=== PATIENT | male | born 1970 | race Caucasian/White ===

== ENCOUNTER 2017-11-13 11:21 | Outpatient (CLI) | payer OTHER | END 2017-11-13 11:22 | disposition critical access hospital (66) | LOC: EMS 11:21 | PROVIDERS: ATTEND Surgery | DX: R58 Hemorrhage, not elsewhere classified (principal) | CPT/HCPCS: A0425; A0427 ==

== ENCOUNTER 2017-11-13 23:03 | Outpatient (CLI) | payer OTHER | END 2017-11-13 23:04 | disposition short-term general hospital (02) | LOC: EMS 23:03 | PROVIDERS: ATTEND Surgery | DX: S71.131A Puncture wound without foreign body, right thigh, initial encounter (principal); W32.0XXA Accidental handgun discharge, initial encounter; Y93.89 Activity, other specified; Y92.838 Other recreation area as the place of occurrence of the external cause | CPT/HCPCS: A0425; A0429 ==

== ENCOUNTER 2017-11-13 23:33 | Emergency (ER) | payer OTHER ==
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
[2017-11-14] MEDS ORDERED: MORPHINE 10 MG/ML VIAL IVP STA (00:09)
[2017-11-14] MEDS ORDERED: KETOROLAC 30 MG/ML VIAL IVP STA (00:09)
[2017-11-14] MEDS ORDERED: ONDANSETRON 4 MG/2 ML VIAL IVP STA (00:09)
[2017-11-14] MEDS ORDERED: VANCOMYCIN INJ 1 GM in SODIUM CHLORIDE 0.9% 500 ML IV STA (00:09)
[2017-11-14] MEDS ORDERED: ceFAZolin 1 GM in SODIUM CHLORIDE 0.9% MINIBAG 100 ML IV ONE (00:09)
[2017-11-14] MEDS ORDERED: SODIUM CHLORIDE 0.9% 1,000 ML IV ONE (00:14)
[2017-11-14] MEDS ORDERED: oxyCODONE/ACET 5/325 Prepack 4 PO STA (02:37)
[2017-11-14 04:15] VITALS: BP 132/74
== END 2017-11-14 04:23 | disposition home or self-care (01) ==
LOC: EDUNIT# → ED 23:33 → SUPCPDRO 23:33 → ED 11-14 04:23
DX: S71.101A Unspecified open wound, right thigh, initial encounter (principal); W32.0XXA Accidental handgun discharge, initial encounter; Y92.39 Other specified sports and athletic area as the place of occurrence of the external cause
CPT/HCPCS: 96365; 96366; 96367; 96375; 99283; J3370

== ENCOUNTER 2018-02-15 16:18 | Emergency (ER) | payer OTHER ==
--- NOTE | 2018-02-15 16:29 | ED Physician Documentation ---
PD HPI SKIN - Stated complaint Stated Complaint: LT KNEE SWOLLEN/RED/PUSS - History obtained from History obtained from: Patient - History of Present Illness Timing - onset: How many days ago (few) Timing - details: Gradual onset (he fell on stairs Wednesday (few days ago) and had abrasion. It is having worsening redness and swelling with some drops of pus at times. Painful and swollen. Seen in office today and referred to ER.) Location: LLE (anterior knee) Quality / character: Painful, Discolored (red), Swelling, Draining Associated symptoms: No: Fever, Myalgias, N/V/D Similar symptoms before: Has not had sx before Review of Systems Constitutional: denies: Fever, Chills, Myalgias GI: denies: Nausea, Vomiting, Diarrhea PD PAST MEDICAL HISTORY - Past Medical History Cardiovascular: None Respiratory: None Neuro: None Endocrine/Autoimmune: None - Past Surgical History Past Surgical History: No - Present Medications Home Medications: Ambulatory Orders Medication Instructions Recorded Confirmed Mupirocin 1 applic TP TID #15 oint...g. 02/15/18 Naproxen 375 mg PO BID #20 tablet 02/15/18 Oxycodone HCl/Acetaminophen 1 each PO Q6H PRN #20 tablet 02/15/18 [Percocet 5-325 mg Tablet] Sulfamethox/Trimeth 800/160 1 each PO BID #14 tablet 02/15/18 [Bactrim Ds 800/160] - Allergies Allergies/Adverse Reactions: Allergies Allergy/AdvReac Type Severity Reaction Status Date / Time No Known Drug Allergies Allergy Verified 02/15/18 16:30 - Social History Does the pt smoke?: No Smoking Status: Never smoker Does the pt drink ETOH?: Yes Does the pt have substance abuse?: No - Immunizations Immunizations are current?: No - POLST Patient has POLST: No PD ED PE NORMAL - Vitals Vital signs reviewed: Yes - General General: Alert and oriented X 3, Well developed/nourished, Other (anxious and seems in pain) - Cardiac Cardiac: RRR, No murmur - Respiratory Respiratory: Clear bilaterally - Derm Derm: Normal color, Warm and dry, Other (left knee anteriorly with skin redness and swelling with some spots of purulent drainage. There is feeling of fluctuance centrally about 2 cm diameter. There does not feel to be any bursal effusion. No joint effusion. ) Results - Vitals Vitals: Vital Signs - 24 hr 02/15/18 16:25 Temperature 36.2 C L Heart Rate 94 Respiratory 18 Rate Blood Pressure 139/87 H O2 Saturation 98 Oxygen O2 Source Room air - Labs Labs: Microbiology 02/15/18 17:50 Wound Culture - Preliminary Abscess Procedures - Abscess I&D (location) left anterior knee Preparation: Lidocaine 1%, With epi Incision: Incised with scalpel, Purulent drainage (some), Irrigated. No: Packed Other: Dressing applied, Antibiotic prescribed. No: Pt tolerated well (it hurt a lot and he was anxious during it. Had given PO pain med prior. He was upset after that it hurt more than expected.) PD MEDICAL DECISION MAKING - ED course Complexity details: considered differential, d/w patient - Sepsis Event Vital Signs: Vital Signs - 24 hr 02/15/18 16:25 Temperature 36.2 C L Heart Rate 94 Respiratory 18 Rate Blood Pressure 139/87 H O2 Saturation 98 Oxygen O2 Source Room air Departure - Departure Disposition: 01 Home, Self Care Clinical Impression: Wound infection, Abscess of knee, left Condition: Stable Record reviewed to determine appropriate education?: Yes Instructions: ED Abscess IandD Follow-Up: Barry Olivas MD [Primary Care Provider] - Prescriptions: Mupirocin 1 applic TP TID #15 oint...g. Naproxen 375 mg PO BID #20 tablet Oxycodone HCl/Acetaminophen [Percocet 5-325 mg Tablet] 1 each PO Q6H PRN #20 tablet PRN Reason: Pain Sulfamethox/Trimeth 800/160 [Bactrim Ds 800/160] 1 each PO BID #14 tablet Comments: Soak the knee or have warm moist compresses to the area to 3 times a day to promote drainage. Use mupirocin topical antibiotic to the area. Apply dressing and [place] wrap for the swelling. Use crutches for partial weightbearing for the next several days. Bactrim antibiotic twice daily for the next week. Use naproxen twice daily for inflammation and pain and add Tylenol or Percocet if needed for pain. Follow-up with your primary care in 2-3 days for recheck of the wound, call for an appointment. Return if generally worsening in the meantime. Discharge Date/Time: 02/15/18 18:03
[2018-02-15 16:31] VITALS: BP 139/87
[2018-02-15] MEDS ORDERED: oxyCODONE 5 MG TABLET PO STA ×2 (16:47→17:16)
[2018-02-15] MEDS ORDERED: SULFAMETH/TRIMETH DS 800/160 MG TABLET PO STA (16:47)
[2018-02-15] MEDS ORDERED: IBUPROFEN 600 MG TABLET PO STA (16:47)
[2018-02-15] MEDS ORDERED: LORazepam 0.5 MG TABLET PO STA (17:16)
== END 2018-02-15 18:03 | disposition home or self-care (01) ==
LOC: ED 16:18
DX: L02.416 Cutaneous abscess of left lower limb (principal); W10.9XXA Fall (on) (from) unspecified stairs and steps, initial encounter
CPT/HCPCS: 10060; 87070; 87205; 99283; A9270

== ENCOUNTER 2020-04-09 17:36 | Outpatient (CLI) | payer MEDICAID, OTHER | END 2020-04-09 23:59 | disposition home or self-care (01) | LOC: LAB.R 17:36 | PROVIDERS: ATTEND Physician Assistant | DX: N34.2 Other urethritis (principal) | CPT/HCPCS: 81599; 87491; 87591 ==

== ENCOUNTER 2020-05-07 16:13 | Emergency (ER) | payer MEDICAID, OTHER ==
[2020-05-07 16:49] LABS: EOSINOPHILS % (AUTO) 0.1 %; LYMPHOCYTES % (AUTO) 52.9 %; MEAN CORPUSCULAR HEMOGLOBIN 35.6 pg (27.0-31.0); MEAN CORPUSCULAR HGB CONC 31.5 g/dL (32.0-36.0); MEAN CORPUSCULAR VOLUME 113.1 fL (80.0-94.0); MEAN PLATELET VOLUME 11.2 fL (7.4-11.4); MONOCYTES % (AUTO) 46.2 %; NEUTROPHILS % (AUTO) 0.4 %; RED CELL DISTRIBUTION WIDTH 18.2 % (12.0-15.0)
--- NOTE | 2020-05-07 16:56 | ED Physician Documentation ---
History of Present Illness - Stated complaint Stated Complaint: EASILY WINDED,YELLOWISH SKIN - Chief complaint Chief Complaint: Cardiac - History obtained from History obtained from: Patient - History of Present Illness Timing: Prior to arrival - Additonal information Additional information: 49-year old male presents to the emergency department for evaluation of 3 weeks intermittent chest pain and shortness of breath. He reports the chest pain as pressure like, non radiating, but worse with exertion. States to me that yesterday he felt liek he was going to have a heart attack. He denies any hx of [place], stroke. he takes not routinely scheduled medications. Pt also reports that his hips and joints have been hurting, especially after walking, which is new for him. no joint swelling or erythema This gentleman is a former smoker, quit 7 years ago. he also has a hx of heavy ETOH, but also has abstained for many years. No hx of htn or dm. NO abdominal pain, syncope, dysuria, hematuria or melena Review of Systems Constitutional: denies: Fever, Chills Eyes: reports: Reviewed and negative Ears: reports: Reviewed and negative Nose: reports: Reviewed and negative Throat: reports: Reviewed and negative Cardiac: reports: Chest pain / pressure. denies: Palpitations, Pedal edema, Calf pain Respiratory: reports: Dyspnea. denies: Cough, Hemoptysis, Wheezing GI: denies: Abdominal Pain, Nausea, Vomiting, Hematemesis, Bloody / black stool : denies: Dysuria, Frequency, Hesitancy Skin: reports: Rash Musculoskeletal: reports: Reviewed and negative Neurologic: denies: Generalized weakness, Near syncope, Syncope, Seizure, Altered mental status Psychiatric: denies: Depressed, Suicidal Endocrine: reports: Reviewed and negative PD PAST MEDICAL HISTORY - Past Medical History Cardiovascular: None Respiratory: None Neuro: None Endocrine/Autoimmune: None - Past Surgical History Past Surgical History: No - Present Medications Home Medications: Ambulatory Orders Medication Instructions Recorded Confirmed Mupirocin 1 applic TP TID #15 oint...g. 02/15/18 Naproxen 375 mg PO BID #20 tablet 02/15/18 Oxycodone HCl/Acetaminophen 1 each PO Q6H PRN #20 tablet 02/15/18 [Percocet 5-325 mg Tablet] Sulfamethox/Trimeth 800/160 1 each PO BID #14 tablet 09/25/18 [Bactrim Ds 800/160] - Allergies Allergies/Adverse Reactions: Allergies Allergy/AdvReac Type Severity Reaction Status Date / Time albuterol Allergy Respiratory Verified 05/07/20 16:21 - Social History Does the pt smoke?: No Smoking Status: Never smoker Does the pt drink ETOH?: Yes Does the pt have substance abuse?: No - Immunizations Immunizations are current?: No - POLST Patient has POLST: No PD ED PE EXPANDED - General General: Alert, No acute distress, Well developed/nourished - HEENT HEENT: Atraumatic, PERRL - Neck Neck: Supple w/out meningeal sx, Adenopathy - Cardiac Cardiac: Regular Rate, Regular Rhythm, Radial strong equal, Pedal strong equal, Cap refill < 2 sec. No: Murmur Present - Respiratory Respiratory: Clear to ausultation zander. No: Distress, Labored - Abdomen Abdomen: Normal Bowel sounds, RUQ. No: Tender to palpation - Derm Derm: Normal color, Other (pale). No: Rash, Petecchiae, Purpura - Extremities Extremities: Normal. No: Pedal edema bilateral, Right calf TTP/cord, Left calf TTP/cord - Neuro Neuro: Alert and Oriented X 3, CNII-XII intact, Normal finger nose, Normal speech - GCS Eye Opening: Spontaneous Motor: Obeys Commands Verbal: Oriented Total: 15 - Psych Psych: Normal, Anxious Results - Vitals Vitals: Vital Signs - 24 hr 05/07/20 05/07/20 05/07/20 16:21 16:26 18:36 Temperature 37.1 C 37.1 C 37.3 C Heart Rate 105 H 94 95 Respiratory 20 20 100 H Rate Blood Pressure 119/68 119/68 133/90 H O2 Saturation 100 100 18 L 05/07/20 05/07/20 05/07/20 19:25 19:34 19:50 Temperature 37.1 C 37.0 C 37.0 C Heart Rate 88 88 92 Respiratory 19 19 19 Rate Blood Pressure 127/73 128/80 125/82 H O2 Saturation Oxygen O2 Source Room air - EKG (time done) 1633 Rate: Rate (enter#) (94) Rhythm: NSR [place]: Normal Intervals: Normal [place] QRS: Normal Ischemia: Normal ST segments Compare to prior EKG: Old EKG unavailable Computer interpretation: Agree with computer - Labs Labs: Laboratory Tests 05/07/20 05/07/20 05/07/20 16:35 16:35 16:35 WBC 44.0 H* RBC 1.60 L Hgb 5.7 L* Hct 18.1 L* MCV 113.1 H MCH 35.6 H MCHC 31.5 L RDW 18.2 H Plt Count 19 L* MPV 11.2 Neut # (Auto) 0.2 L* Lymph # (Auto) Not Reportable [place] # (Auto) Not Reportable Eos # (Auto) Not Reportable Baso # (Auto) Not Reportable Absolute Nucleated RBC Not Reportable Total Counted 100 Band Neuts % (Manual) 0 Abnorm Lymph % (Manual) 0 Blast Cells % 52 H* Nucleated RBC % Not Reportable Neutrophils # (Manual) 0.0 L* Lymphocytes # (Manual) 21.1 H Monocytes # (Manual) 0.0 Eosinophils # (Manual) 0.0 Basophils # (Manual) 0.0 Differential Comment MANUAL DIFFERENTIAL Platelet Estimate DECREASED (<130,000) Platelet Morphology NORMAL APPEARANCE RBC Morph Micro Appear 2+ ANISOCYTOSIS Sodium 139 Potassium 4.4 Chloride 106 Carbon Dioxide 25 Anion Gap 8.0 BUN 31 H Creatinine 1.4 H Estimated GFR (MDRD) 54 L Glucose 90 Lactic Acid Uric Acid Calcium 9.0 Total Bilirubin 0.6 AST 26 ALT 41 Alkaline Phosphatase 84 Lactate Dehydrogenase Troponin I High Sens 4.7 B-Natriuretic Peptide Total Protein 7.2 Albumin 4.0 Globulin 3.2 Albumin/Globulin Ratio 1.3 Lipase 25 Nasal Adenovirus (PCR) Nasal B. parapertussis DNA (PCR) Nasal Coronavir 229E PCR Nasal Coronavir HKU1 PCR Nasal Coronavir NL63 PCR Nasal Coronavir OC43 PCR Nasal Enterovir/Rhinovir PCR Nasal Influenza B PCR Nasal Influenza A PCR Nasal Parainfluen 1 PCR Nasal Parainfluen 2 PCR Nasal Parainfluen 3 PCR Nasal Parainfluen 4 PCR Nasal RSV (PCR) Nasal B.pertussis DNA PCR Nasal C.pneumoniae (PCR) Gerald Human Metapneumo PCR Nasal M.pneumoniae (PCR) Nasal SARS-CoV-2 (PCR) Slides for Path Review Indicated Blood Type Blood Type Recheck Antibody Screen Crossmatch IS Only 05/07/20 05/07/20 05/07/20 16:35 16:57 17:16 WBC RBC Hgb Hct MCV MCH MCHC RDW Plt Count MPV Neut # (Auto) Lymph # (Auto) [place] # (Auto) Eos # (Auto) Baso # (Auto) Absolute Nucleated RBC Total Counted Band Neuts % (Manual) Abnorm Lymph % (Manual) Blast Cells % Nucleated RBC % Neutrophils # (Manual) Lymphocytes # (Manual) Monocytes # (Manual) Eosinophils # (Manual) Basophils # (Manual) Differential Comment Platelet Estimate Platelet Morphology RBC Morph Micro Appear Sodium Potassium Chloride Carbon Dioxide Anion Gap BUN Creatinine Estimated GFR (MDRD) Glucose Lactic Acid Uric Acid Calcium Total Bilirubin AST ALT Alkaline Phosphatase Lactate Dehydrogenase Troponin I High Sens B-Natriuretic Peptide 29 Total Protein Albumin Globulin Albumin/Globulin Ratio Lipase Nasal Adenovirus (PCR) NOT DETECTED Nasal B. parapertussis DNA (PCR) NOT DETECTED Nasal Coronavir 229E PCR NOT DETECTED Nasal Coronavir HKU1 PCR NOT DETECTED Nasal Coronavir NL63 PCR NOT DETECTED Nasal Coronavir OC43 PCR NOT DETECTED Nasal Enterovir/Rhinovir PCR DETECTED A Nasal Influenza B PCR NOT DETECTED Nasal Influenza A PCR NOT DETECTED Nasal Parainfluen 1 PCR NOT DETECTED Nasal Parainfluen 2 PCR NOT DETECTED Nasal Parainfluen 3 PCR NOT DETECTED Nasal Parainfluen 4 PCR NOT DETECTED Nasal RSV (PCR) NOT DETECTED Nasal B.pertussis DNA PCR NOT DETECTED Nasal C.pneumoniae (PCR) NOT DETECTED Gerald Human Metapneumo PCR NOT DETECTED Nasal M.pneumoniae (PCR) NOT DETECTED Nasal SARS-CoV-2 (PCR) NOT DETECTED Slides for Path Review Blood Type A POSITIVE Blood Type Recheck Antibody Screen NEGATIVE Crossmatch IS Only 05/07/20 05/07/20 05/07/20 17:16 17:16 17:16 WBC RBC Hgb Hct MCV MCH MCHC RDW Plt Count MPV Neut # (Auto) Lymph # (Auto) [place] # (Auto) Eos # (Auto) Baso # (Auto) Absolute Nucleated RBC Total Counted Band Neuts % (Manual) Abnorm Lymph % (Manual) Blast Cells % Nucleated RBC % Neutrophils # (Manual) Lymphocytes # (Manual) Monocytes # (Manual) Eosinophils # (Manual) Basophils # (Manual) Differential Comment Platelet Estimate Platelet Morphology RBC Morph Micro Appear Sodium Potassium Chloride Carbon Dioxide Anion Gap BUN Creatinine Estimated GFR (MDRD) Glucose Lactic Acid 0.8 Uric Acid Calcium Total Bilirubin AST ALT Alkaline Phosphatase Lactate Dehydrogenase Troponin I High Sens B-Natriuretic Peptide Total Protein Albumin Globulin Albumin/Globulin Ratio Lipase Nasal Adenovirus (PCR) Nasal B. parapertussis DNA (PCR) Nasal Coronavir 229E PCR Nasal Coronavir HKU1 PCR Nasal Coronavir NL63 PCR Nasal Coronavir OC43 PCR Nasal Enterovir/Rhinovir PCR Nasal Influenza B PCR Nasal Influenza A PCR Nasal Parainfluen 1 PCR Nasal Parainfluen 2 PCR Nasal Parainfluen 3 PCR Nasal Parainfluen 4 PCR Nasal RSV (PCR) Nasal B.pertussis DNA PCR Nasal C.pneumoniae (PCR) Gerald Human Metapneumo PCR Nasal M.pneumoniae (PCR) Nasal SARS-CoV-2 (PCR) Slides for Path Review Blood Type Cancelled Blood Type Recheck Antibody Screen Cancelled Crossmatch IS Only See Detail See Detail 05/07/20 05/07/20 05/07/20 17:58 18:44 18:52 WBC RBC Hgb Hct MCV MCH MCHC RDW Plt Count MPV Neut # (Auto) Lymph # (Auto) [place] # (Auto) Eos # (Auto) Baso # (Auto) Absolute Nucleated RBC Total Counted Band Neuts % (Manual) Abnorm Lymph % (Manual) Blast Cells % Nucleated RBC % Neutrophils # (Manual) Lymphocytes # (Manual) Monocytes # (Manual) Eosinophils # (Manual) Basophils # (Manual) Differential Comment Platelet Estimate Platelet Morphology RBC Morph Micro Appear Sodium Potassium Chloride Carbon Dioxide Anion Gap BUN Creatinine Estimated GFR (MDRD) Glucose Lactic Acid Uric Acid 7.9 H Calcium Total Bilirubin AST ALT Alkaline Phosphatase Lactate Dehydrogenase 469 H Troponin I High Sens B-Natriuretic Peptide Total Protein Albumin Globulin Albumin/Globulin Ratio Lipase Nasal Adenovirus (PCR) Nasal B. parapertussis DNA (PCR) Nasal Coronavir 229E PCR Nasal Coronavir HKU1 PCR Nasal Coronavir NL63 PCR Nasal Coronavir OC43 PCR Nasal Enterovir/Rhinovir PCR Nasal Influenza B PCR Nasal Influenza A PCR Nasal Parainfluen 1 PCR Nasal Parainfluen 2 PCR Nasal Parainfluen 3 PCR Nasal Parainfluen 4 PCR Nasal RSV (PCR) Nasal B.pertussis DNA PCR Nasal C.pneumoniae (PCR) Gerald Human Metapneumo PCR Nasal M.pneumoniae (PCR) Nasal SARS-CoV-2 (PCR) Slides for Path Review Blood Type Blood Type Recheck A POSITIVE Antibody Screen Crossmatch IS Only - Rads (name of study) CXR Radiology: Final report received (Chest without acute cardiopulmonary abnormalities.) CT angio chest Radiology: Final report received (4 mm right upper lobe pulmonary nodule with surrounding opacity suspicious for malignancy although an infectious or inflammatory process could cause a similar appearance. Tiny 2 mm left lower lobe pulmonary nodule nonspecific. No lymphadenopathy in the chest.) CT abd/pelvis Radiology: Final report received (Questionable small bowel wall thickening and gastric wall thickening. These are nonspecific and potentially artifactual findings however they can be seen in the setting of leukemia or other infiltrative process. Otherwise no acute finding) PD MEDICAL DECISION MAKING - ED course Complexity details: reviewed results, re-evaluated patient, considered differential, d/w patient, d/w family ED course: 49-year-old male presents the emergency department with 3 weeks of chest pain, shortness of breath, progressive fatigue as well as joint aches. On initial laboratory screening it is noted that he has marked leukocytosis with 52% blasts. This is indicative of an acute myeloid crisis. CT scan of the chest does not show any pulmonary embolus however there is a right upper lobe nodule that is somewhat suspicious for metastatic disease. Patient is noted to be markedly thrombocytopenic as well as anemic. I have ordered irradiated and leukoreduced PRBC infusion. Patient had reported shortness of air and chest pain. His EKG is nonischemic. Negative high-sensitivity troponin. Normal BNP. Chest x-ray does not show findings consistent with CHF or pulmonary edema. 1845: I have spoken with Dr Venegas Agency Director/oncologist with [facility]. She agrees to accept the patient in transfer. She has requested LDH and uric acid be obtained. His COVID screen is negative, though + for rhinovirus 1900: Dr. Aldrich a hospitalist at [facility] has agreed to accept the patient in transfer. We are pending a bed assignment. Patient remains hemodynamically stable and alert. He was getting excessively anxious and 1 mg of Ativan was given to help calm his nerves. He has agreed to the PRBC infusion 2009: PRBC infusion well tolerated. LDH and uric acid levels noted to be elevated. Pt remains hemodynamically stable. Pt has been accepted at [facility]. Bed assignment pending. Apppropriate COB[employer] paperwork has been filled out. 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
--- NOTE | 2020-05-07 16:57 | XRAY Report ---
PROCEDURE: Chest 1 View X-Ray INDICATIONS: Chest Pain TECHNIQUE: One view of the chest was acquired. COMPARISON: 08/09/2011 FINDINGS: Surgical changes and devices: Surgical fixation hardware noted in the proximal right humerus. Lungs and pleura: No pleural effusions or pneumothorax. Lungs are clear. Mediastinum: Mediastinal contours appear normal. Heart size is normal. Bones and chest wall: No suspicious bony lesions. Overlying soft tissues appear unremarkable. IMPRESSION: Chest without acute cardiopulmonary abnormalities. Reviewed by: Ronn Mueller MD on 05/07/2020 4:56 PM PST Approved by: Ronn Mueller MD on 05/07/2020 4:56 PM PST Station ID: [id number]
[2020-05-07 16:58] LABS: HGB - HEMOGLOBIN 5.7 g/dL (14.0-18.0); PLT - PLATELET COUNT 19 10^3/uL (130-450)
[2020-05-07] MEDS ORDERED: SODIUM CHLORIDE 0.9% 1,000 ML IV STA ×2 (16:58→17:00)
[2020-05-07 16:59] LABS: ALBUMIN/GLOBULIN RATIO 1.3 (1.0-2.2); BILIRUBIN,TOTAL 0.6 mg/dL (0.2-1.0); CREATININE 1.4 mg/dL (0.6-1.2); TOTAL PROTEIN 7.2 g/dL (6.7-8.2)
[2020-05-07 17:00] LABS: ABNORMAL LYMPHS % (MANUAL) 0 %; BAND NEUTROPHILS % (MANUAL) 0 %
[2020-05-07] MEDS ORDERED: IOVERSOL 320 100 ML VIAL IVP ONE ×2 (17:17→18:46)
[2020-05-07 17:33] LABS: LYMPHOCYTES # (MANUAL) 21.1 10^3/uL (1.5-3.5); LYMPHOCYTES % (MANUAL) 48 %
[2020-05-07 17:34] LABS: DIFFERENTIAL COMMENT MANUAL DIFFERENTIAL; PLATELET ESTIMATE, MANUAL DECREASED (<130,000) (NORMAL); PLATELET MORPHOLOGY NORMAL APPEARANCE (NORMAL); RBC MORPHOLOGY (MULTIPLE) 2+ ANISOCYTOSIS (NORMAL)
[2020-05-07 17:50] LABS: NEUTROPHILS # (AUTO) 0.2 10^3/uL (1.5-6.6)
--- NOTE | 2020-05-07 18:00 | CT Report ---
PROCEDURE: Abdomen/Pelvis W INDICATIONS: Leukemia suspected CONTRAST: IV CONTRAST: Optiray 320 ml: 100 PO CONTRAST: *NO PO CONTRAST TECHNIQUE: After the administration of intravenous contrast, 5 mm thick sections acquired from the diaphragms to the symphysis. 5 mm thick coronal and sagittal reformats were acquired. For radiation dose reducti on, the following was used: automated exposure control, adjustment of mA and/or kV according to luz ent size. COMPARISON: None. FINDINGS: Image quality: Excellent. ABDOMEN: Lung bases: Lung bases are clear. Heart size is normal. Solid organs: Normal sized spleen. The liver is unremarkable. Gallbladder is decompressed and normal in appearance. No adrenal gland mass. Kidneys are normal without hydronephrosis. Pancreas is within n ormal limits. Peritoneum and bowel: Questionable areas of wall thickening involving the proximal and mid portions o f the small bowel. There is also a somewhat thickened appearance of the stomach, although this is not definitive as the stomach is almost entirely decompressed. No abnormally dilated loop of bowel. Loyal n is unremarkable. Nodes and vessels: No threshold enlarged retroperitoneal or intra-abdominal lymph node identified. Miscellaneous: No ventral hernias. PELVIS: Genitourinary: Bladder wall thickness is normal. Miscellaneous: No inguinal hernias or adenopathy. Bones: No suspicious bony lesions. No vertebral body compression fractures. IMPRESSION: Questionable small bowel wall thickening and gastric wall thickening. These are nonspecific and poten tially artifactual findings, however they can be seen in the setting of leukemia or other infiltrativ e processes. Otherwise no acute finding. Reviewed by: Neo Schuster MD on 05/07/2020 4:59 PM [facility] Approved by: Neo Schuster MD on 05/07/2020 4:59 PM [place] Station ID: [id number]
--- NOTE | 2020-05-07 18:03 | CT Report ---
PROCEDURE: ANGIO CHEST W/WO INDICATIONS: SOA: ? leukemia; r/o PE CONTRAST: IV CONTRAST: Optiray 320 ml: 100 PO CONTRAST: *NO PO CONTRAST TECHNIQUE: After the administration of intravenous contrast, 2 mm thick sections acquired from the pulmonary api tete to the posterior costophrenic angles. 3-dimensional maximum intensity projection (MIP) coronal a nd sagittal reformats were then acquired through the thorax. For radiation dose reduction, the follow ing was used: automated exposure control, adjustment of mA and/or kV according to patient size. COMPARISON: None FINDINGS: Image quality: Excellent. Pulmonary arteries: Pulmonary arteries are normal in size, and demonstrate no intraluminal filling d efects to suggest central pulmonary embolism. Lungs and pleura: Approximately 4 mm right upper lobe pulmonary nodule on series 2 image 62 has a bebo rounding hazy groundglass opacity and is suspicious in appearance. Tiny nodule in the left lower lobe inferiorly measuring 2 mm on series 2 image 120. Mediastinum: Heart size is normal, without pericar dial effusion. No mediastinal or hilar adenopathy. Thoracic aorta is normal in caliber and enhancem ent. Esophagus is normal in caliber, without hiatal hernia. Bones and chest wall: No suspicious bony lesions. Ribs and thoracic spine appear intact throughout. The thyroid is normal. No axillary or supraclavicular adenopathy. Abdomen: Visualized upper abdominal solid organs appear normal in the early arterial phase of enhanc ement. IMPRESSION: Approximately 4 mm right upper lobe pulmonary nodule with surrounding hazy groundglass opacity. This is suspicious for malignancy although an infectious or inflammatory process could cause a similar ignacio earance. Tiny 2 mm left lower lobe pulmonary nodule is nonspecific. No lymphadenopathy in the chest. Reviewed by: Neo Schuster MD on 05/07/2020 5:02 PM [place] Approved by: Neo Schuster MD on 05/07/2020 5:02 PM [facility] Station ID: [id number]
[2020-05-07 18:04] LABS: C. PNEUMONIAE- RESP PCR PANEL NOT DETECTED
[2020-05-07] MEDS ORDERED: LORazepam 2 MG/ML VIAL IVP STA (18:34)
[2020-05-07 22:03] VITALS: BP 134/74
== END 2020-05-07 21:55 | disposition short-term general hospital (02) ==
LOC: ED 16:13
DX: C92.00 Acute myeloblastic leukemia, not having achieved remission (principal); D69.6 Thrombocytopenia, unspecified; B34.8 Other viral infections of unspecified site; R91.1 Solitary pulmonary nodule; Z20.828 Contact with and (suspected) exposure to other viral communicable diseases; R79.89 Other specified abnormal findings of blood chemistry; F41.1 Generalized anxiety disorder
CPT/HCPCS: 0202U; 36430; 71045; 71275; 74177; 80053; 83605; 83615; 83690; 83880; 84484; 84550; 85025; 86850; 86900; 86901; 86920; 87040; 93005; 96361; 96374; 99284; 99285; J2060; P9040; Q9967; 36415

== ENCOUNTER 2020-05-29 02:53 | Outpatient (CLI) | payer MEDICAID ==
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
== END 2020-05-29 02:54 | disposition critical access hospital (66) ==
LOC: EMS 02:53
PROVIDERS: ATTEND Surgery
DX: R06.02 Shortness of breath (principal); R07.9 Chest pain, unspecified; R53.1 Weakness; M79.10 Myalgia, unspecified site; R53.83 Other fatigue; R11.0 Nausea; F41.9 Anxiety disorder, unspecified
CPT/HCPCS: A0425; A0429; A0999

== ENCOUNTER 2020-05-29 03:25 | Emergency (ER) | payer MEDICAID ==
--- NOTE | 2020-05-29 03:31 | ED Physician Documentation ---
PD HPI CHEST PAIN - Stated complaint Stated Complaint: CP/SOA - History obtained from History obtained from: Patient, EMS - History of Present Illness Timing - onset: Other ("a couple of weeks, at least" per patient) Timing - duration: Weeks Timing - details: Gradual onset, Constant, Waxing and waning Pain level max: 10 Pain level now: 10 Quality: Pain Location: Substernal Improved by: Nothing Worsened by: Inspiration (distinctly pleuritic component) Associated symptoms: Shortness of air. No: Cough Similar symptoms before: Diagnosis (ALL (noted on previous [facility] chart; patient tells me he has "lung cancer" and "pneumonia")) Recently seen: Admitted - Additional information Additional information: BIBA. c/o midline chest pain that radiates across anterior chest with dyspnea; there is a distinct pleuritic component to the chest pain. He tells me these symptoms have been going on for "a couple weeks, at least". He was evaluated in this ED 05/07/20 and transferred to [facility] due to marked anemia, thrombocytopenia, leukocytosis (with over 50% blasts). Patient is in extremis on arrival and thus limited HPI/ROS; he is in obvious severe painful distress and markedly tachypneic Review of Systems Constitutional: reports: Fever (Tmax 103.7 ("few days ago", per patient)) Cardiac: reports: Chest pain / pressure. denies: Palpitations, Pedal edema, Calf pain Respiratory: reports: Dyspnea. denies: Cough, Hemoptysis, Wheezing GI: reports: Reviewed and negative Musculoskeletal: denies: Extremity swelling PD PAST MEDICAL HISTORY - Past Medical History Cardiovascular: None Respiratory: None Neuro: None Endocrine/Autoimmune: None - Past Surgical History Past Surgical History: No - Present Medications Home Medications: Ambulatory Orders Medication Instructions Recorded Confirmed Naproxen [Naprosyn] 220 mg PO Q8H PRN 05/29/20 05/29/20 OLANZapine [Zyprexa] 10 mg PO DAILY 05/29/20 05/29/20 Prednisone 20 mg PO DAILY 05/29/20 05/29/20 Sulfamethox/Trimeth 800/160 3 each PO TID 05/29/20 05/29/20 [Bactrim Ds 800/160] Tamsulosin HCl [Flomax] 0.4 mg PO DAILY 05/29/20 05/29/20 oxyCODONE/ACET 5/325 [Percocet 5 1 - 2 each PO Q6HR PRN 05/29/20 05/29/20 mg/325 mg] - Allergies Allergies/Adverse Reactions: Allergies Allergy/AdvReac Type Severity Reaction Status Date / Time albuterol Allergy Respiratory Verified 05/07/20 16:21 - Social History Does the pt smoke?: No Smoking Status: Never smoker Does the pt drink ETOH?: Yes Does the pt have substance abuse?: No - Immunizations Immunizations are current?: No - POLST Patient has POLST: No PD ED PE NORMAL - Vitals Vital signs reviewed: Yes - General General: Well developed/nourished, Other (obvious painful and respiratory distress) - Neck Neck: Supple, no meningeal sign - Cardiac Cardiac: No murmur - Abdomen Abdomen: Soft, Non tender - Extremities Extremities: No edema PD ED PE EXPANDED - Cardiac Cardiac: Tachy, Regular Rhythm - Respiratory Respiratory: Distress, Labored, Rhonchi (bilaterally) - Derm Derm: Pale, Diaphoretic Results - Vitals Vitals: Vital Signs - 24 hr 05/29/20 05/29/20 05/29/20 03:37 05:44 07:20 Temperature 36.4 C L Heart Rate 121 H 108 H 107 H Respiratory 30 H 21 17 Rate Blood Pressure 135/74 H 109/80 121/79 O2 Saturation 97 97 97 05/29/20 05/29/20 05/29/20 08:30 08:41 08:48 Temperature Heart Rate 104 H 103 H 87 Respiratory 15 16 16 Rate Blood Pressure 101/63 101/64 81/55 L O2 Saturation 100 99 100 05/29/20 05/29/20 05/29/20 08:55 09:00 09:10 Temperature Heart Rate 91 96 97 Respiratory 16 16 17 Rate Blood Pressure 82/57 L 90/59 L 92/62 O2 Saturation 98 97 96 05/29/20 05/29/20 09:15 09:30 Temperature 37.2 C Heart Rate 98 94 Respiratory 18 17 Rate Blood Pressure 91/62 90/63 O2 Saturation 95 100 Oxygen O2 Source Nasal cannula - EKG (time done) No standard instances Rate: Rate (enter#) (118) Rhythm: NSR [place]: Normal Intervals: Normal [place] QRS: Normal Ischemia: Q waves (V1, V2 (similar pattern compared to 05/07/20)), Other (flat T waves II, III, aVF (new compared to 05/07/20)) - Labs Labs: Laboratory Tests 05/29/20 05/29/20 05/29/20 03:50 03:50 03:55 WBC 13.4 H RBC 1.85 L Hgb 5.8 L* Hct 18.3 L* MCV 98.9 H MCH 31.4 H MCHC 31.7 L RDW 19.3 H Plt Count 50 L MPV 10.6 Neut # (Auto) Not Reportable Lymph # (Auto) Not Reportable Luna # (Auto) Not Reportable Eos # (Auto) Not Reportable Baso # (Auto) Not Reportable Absolute Nucleated RBC Not Reportable Total Counted 100 Band Neuts % (Manual) 0 Abnorm Lymph % (Manual) 0 Metamyelocytes % 1 H Blast Cells % 49 H* Nucleated RBC % Not Reportable Neutrophils # (Manual) 1.1 L Lymphocytes # (Manual) 5.2 H Monocytes # (Manual) 0.4 Eosinophils # (Manual) 0.0 Basophils # (Manual) 0.0 Nucleated RBCs 1 Differential Comment MANUAL DIFFERENTIAL Platelet Estimate DECREASED (<130,000) RBC Morph Micro Appear 1+ POLYCHROMASIA PT 15.5 H INR 1.4 H APTT 26.0 Sodium Potassium Chloride Carbon Dioxide Anion Gap BUN Creatinine Estimated GFR (MDRD) Glucose Lactic Acid Calcium Total Bilirubin AST ALT Alkaline Phosphatase Total Creatine Kinase Troponin I High Sens 255.0 H* Total Protein Albumin Globulin Albumin/Globulin Ratio Lipase Nasal Adenovirus (PCR) Nasal B. parapertussis DNA (PCR) Nasal Coronavir 229E PCR Nasal Coronavir HKU1 PCR Nasal Coronavir NL63 PCR Nasal Coronavir OC43 PCR Nasal Enterovir/Rhinovir PCR Nasal Influenza B PCR Nasal Influenza A PCR Nasal Parainfluen 1 PCR Nasal Parainfluen 2 PCR Nasal Parainfluen 3 PCR Nasal Parainfluen 4 PCR Nasal RSV (PCR) Nasal B.pertussis DNA PCR Nasal C.pneumoniae (PCR) Gerald Human Metapneumo PCR Nasal M.pneumoniae (PCR) Nasal SARS-CoV-2 (PCR) Urine Opiates Screen Ur Oxycodone Screen Urine Methadone Screen Ur Propoxyphene Screen Ur Barbiturates Screen Ur Tricyclics Screen Ur Phencyclidine Scrn Ur Amphetamine Screen U Methamphetamines Scrn U Benzodiazepines Scrn Urine Cocaine Screen U Cannabinoids Screen Ethyl Alcohol Blood Type Antibody Screen Crossmatch IS Only 05/29/20 05/29/20 05/29/20 03:55 04:14 04:45 WBC RBC Hgb Hct MCV MCH MCHC RDW Plt Count MPV Neut # (Auto) Lymph # (Auto) Luna # (Auto) Eos # (Auto) Baso # (Auto) Absolute Nucleated RBC Total Counted Band Neuts % (Manual) Abnorm Lymph % (Manual) Metamyelocytes % Blast Cells % Nucleated RBC % Neutrophils # (Manual) Lymphocytes # (Manual) Monocytes # (Manual) Eosinophils # (Manual) Basophils # (Manual) Nucleated RBCs Differential Comment Platelet Estimate RBC Morph Micro Appear PT INR APTT Sodium 131 L Potassium 6.1 H* Chloride 97 L Carbon Dioxide 20 L Anion Gap 14.0 H BUN 26 H Creatinine 1.3 H Estimated GFR (MDRD) 59 L Glucose 155 H Lactic Acid Calcium 8.4 L Total Bilirubin 0.5 AST 56 H ALT 128 H Alkaline Phosphatase 75 Total Creatine Kinase Troponin I High Sens Total Protein 7.3 Albumin 3.2 Globulin 4.1 Albumin/Globulin Ratio 0.8 L Lipase 20 L Nasal Adenovirus (PCR) NOT DETECTED Nasal B. parapertussis DNA (PCR) NOT DETECTED Nasal Coronavir 229E PCR NOT DETECTED Nasal Coronavir HKU1 PCR NOT DETECTED Nasal Coronavir NL63 PCR NOT DETECTED Nasal Coronavir OC43 PCR NOT DETECTED Nasal Enterovir/Rhinovir PCR NOT DETECTED Nasal Influenza B PCR NOT DETECTED Nasal Influenza A PCR NOT DETECTED Nasal Parainfluen 1 PCR NOT DETECTED Nasal Parainfluen 2 PCR NOT DETECTED Nasal Parainfluen 3 PCR NOT DETECTED Nasal Parainfluen 4 PCR NOT DETECTED Nasal RSV (PCR) NOT DETECTED Nasal B.pertussis DNA PCR NOT DETECTED Nasal C.pneumoniae (PCR) NOT DETECTED Gerald Human Metapneumo PCR NOT DETECTED Nasal M.pneumoniae (PCR) NOT DETECTED Nasal SARS-CoV-2 (PCR) NOT DETECTED Urine Opiates Screen Ur Oxycodone Screen Urine Methadone Screen Ur Propoxyphene Screen Ur Barbiturates Screen Ur Tricyclics Screen Ur Phencyclidine Scrn Ur Amphetamine Screen U Methamphetamines Scrn U Benzodiazepines Scrn Urine Cocaine Screen U Cannabinoids Screen Ethyl Alcohol Blood Type A POSITIVE Antibody Screen NEGATIVE Crossmatch IS Only See Detail 05/29/20 05/29/20 05/29/20 07:24 07:24 07:24 WBC RBC Hgb Hct MCV MCH MCHC RDW Plt Count MPV Neut # (Auto) Lymph # (Auto) Luna # (Auto) Eos # (Auto) Baso # (Auto) Absolute Nucleated RBC Total Counted Band Neuts % (Manual) Abnorm Lymph % (Manual) Metamyelocytes % Blast Cells % Nucleated RBC % Neutrophils # (Manual) Lymphocytes # (Manual) Monocytes # (Manual) Eosinophils # (Manual) Basophils # (Manual) Nucleated RBCs Differential Comment Platelet Estimate RBC Morph Micro Appear PT INR APTT Sodium Potassium Chloride Carbon Dioxide Anion Gap BUN Creatinine Estimated GFR (MDRD) Glucose Lactic Acid Calcium Total Bilirubin AST ALT Alkaline Phosphatase Total Creatine Kinase 58 Troponin I High Sens 495.3 H* Total Protein Albumin Globulin Albumin/Globulin Ratio Lipase Nasal Adenovirus (PCR) Nasal B. parapertussis DNA (PCR) Nasal Coronavir 229E PCR Nasal Coronavir HKU1 PCR Nasal Coronavir NL63 PCR Nasal Coronavir OC43 PCR Nasal Enterovir/Rhinovir PCR Nasal Influenza B PCR Nasal Influenza A PCR Nasal Parainfluen 1 PCR Nasal Parainfluen 2 PCR Nasal Parainfluen 3 PCR Nasal Parainfluen 4 PCR Nasal RSV (PCR) Nasal B.pertussis DNA PCR Nasal C.pneumoniae (PCR) Gerald Human Metapneumo PCR Nasal M.pneumoniae (PCR) Nasal SARS-CoV-2 (PCR) Urine Opiates Screen Ur Oxycodone Screen Urine Methadone Screen Ur Propoxyphene Screen Ur Barbiturates Screen Ur Tricyclics Screen Ur Phencyclidine Scrn Ur Amphetamine Screen U Methamphetamines Scrn U Benzodiazepines Scrn Urine Cocaine Screen U Cannabinoids Screen Ethyl Alcohol < 5.0 Blood Type Antibody Screen Crossmatch IS Only 05/29/20 05/29/20 07:33 08:05 WBC RBC Hgb Hct MCV MCH MCHC RDW Plt Count MPV Neut # (Auto) Lymph # (Auto) Luna # (Auto) Eos # (Auto) Baso # (Auto) Absolute Nucleated RBC Total Counted Band Neuts % (Manual) Abnorm Lymph % (Manual) Metamyelocytes % Blast Cells % Nucleated RBC % Neutrophils # (Manual) Lymphocytes # (Manual) Monocytes # (Manual) Eosinophils # (Manual) Basophils # (Manual) Nucleated RBCs Differential Comment Platelet Estimate RBC Morph Micro Appear PT INR APTT Sodium Potassium Chloride Carbon Dioxide Anion Gap BUN Creatinine Estimated GFR (MDRD) Glucose Lactic Acid 1.2 Calcium Total Bilirubin AST ALT Alkaline Phosphatase Total Creatine Kinase Troponin I High Sens Total Protein Albumin Globulin Albumin/Globulin Ratio Lipase Nasal Adenovirus (PCR) Nasal B. parapertussis DNA (PCR) Nasal Coronavir 229E PCR Nasal Coronavir HKU1 PCR Nasal Coronavir NL63 PCR Nasal Coronavir OC43 PCR Nasal Enterovir/Rhinovir PCR Nasal Influenza B PCR Nasal Influenza A PCR Nasal Parainfluen 1 PCR Nasal Parainfluen 2 PCR Nasal Parainfluen 3 PCR Nasal Parainfluen 4 PCR Nasal RSV (PCR) Nasal B.pertussis DNA PCR Nasal C.pneumoniae (PCR) Gerald Human Metapneumo PCR Nasal M.pneumoniae (PCR) Nasal SARS-CoV-2 (PCR) Urine Opiates Screen POSITIVE H Ur Oxycodone Screen POSITIVE H Urine Methadone Screen NEGATIVE Ur Propoxyphene Screen NEGATIVE Ur Barbiturates Screen NEGATIVE Ur Tricyclics Screen NEGATIVE Ur Phencyclidine Scrn NEGATIVE Ur Amphetamine Screen POSITIVE H U Methamphetamines Scrn POSITIVE H U Benzodiazepines Scrn POSITIVE H Urine Cocaine Screen NEGATIVE U Cannabinoids Screen NEGATIVE Ethyl Alcohol Blood Type Antibody Screen Crossmatch IS Only - Rads (name of study) CT chest angio Radiology: Prelim report reviewed, See rad report PD MEDICAL DECISION MAKING - ED course Complexity details: reviewed old records, reviewed results, re-evaluated patient, considered differential, d/w patient ED course: given 1mg IV dilaudid with 1mg IV ativan; this resulted in sedation (beyond the desired effect of analgesia and anxiolysis). He remained arousable to verbal stimuli, albeit briefly. He continued to have tachycardia (110s-120s) despite the sedation. Marked abnormalities again noted on blood tests (leukocytosis with over 40% blasts, marked anemia and thrombocytopenia; hyperkalemia) Care of patient turned over to Dr. Watson at end of my shift pending disposition. Departure - Departure Disposition: 02 Transfer Acute Care Hosp Clinical Impression: Shortness of breath, Drug abuse ALL (acute lymphoblastic leukemia) Qualifiers: Leukemia Active/Remission status: without remission Qualified Code(s): C91.00 - Acute lymphoblastic leukemia not having achieved remission Anemia Qualifiers: Anemia type: other cause Other causes of anemia: other cause, not classified Qualified Code(s): D64.89 - Other specified anemias Pneumocystis jiroveci pneumonia Qualifiers: Laterality: bilateral Lung location: unspecified part of lung Qualified Code(s): B59 - Pneumocystosis Pneumonia Qualifiers: Pneumonia type: due to unspecified organism Laterality: bilateral Lung location: unspecified part of lung Qualified Code(s): J18.9 - Pneumonia, unspecified organism Condition: Serious
[2020-05-29] MEDS ORDERED: LORazepam 2 MG/ML VIAL IVP STA (03:50)
[2020-05-29] MEDS ORDERED: HYDROmorphone 1 MG/ML CARPUJECT IVP STA (03:50)
[2020-05-29 04:06] LABS: BASOPHILS % (AUTO) 0.1 %; LYMPHOCYTES % (AUTO) 36.7 %; MEAN CORPUSCULAR HEMOGLOBIN 31.4 pg (27.0-31.0); MEAN CORPUSCULAR HGB CONC 31.7 g/dL (32.0-36.0); MEAN CORPUSCULAR VOLUME 98.9 fL (80.0-94.0); MEAN PLATELET VOLUME 10.6 fL (7.4-11.4); MONOCYTES % (AUTO) 58.5 %; NEUTROPHILS % (AUTO) 3.7 %; PLT - PLATELET COUNT 50 10^3/uL (130-450); RED BLOOD COUNT 1.85 10^6/uL (4.70-6.10); RED CELL DISTRIBUTION WIDTH 19.3 % (12.0-15.0); WHITE BLOOD COUNT 13.4 x10^3/uL (4.8-10.8)
[2020-05-29 04:10] LABS: HGB - HEMOGLOBIN 5.8 g/dL (14.0-18.0)
[2020-05-29 04:10] LABS: INR 1.4 (0.8-1.2); PT - PROTHROMBIN TIME 15.5 secs (9.9-12.6)
[2020-05-29 04:11] LABS: HCT - HEMATOCRIT 18.3 % (42.0-52.0)
[2020-05-29 04:12] LABS: ABNORMAL LYMPHS % (MANUAL) 0 %; BAND NEUTROPHILS % (MANUAL) 0 %
[2020-05-29 04:20] LABS: ALBUMIN 3.2 g/dL (3.2-5.5); ALBUMIN/GLOBULIN RATIO 0.8 (1.0-2.2); BILIRUBIN,TOTAL 0.5 mg/dL (0.2-1.0); CALCIUM 8.4 mg/dL (8.5-10.3); CREATININE 1.3 mg/dL (0.6-1.2); TOTAL PROTEIN 7.3 g/dL (6.7-8.2)
[2020-05-29 04:22] LABS: POTASSIUM 6.1 mmol/L (3.5-5.0)
[2020-05-29] MEDS ORDERED: IOVERSOL 320 100 ML VIAL IVP ONE ×2 (04:30→05:51)
[2020-05-29 04:44] LABS: LYMPHOCYTES # (MANUAL) 5.2 10^3/uL (1.5-3.5); LYMPHOCYTES % (MANUAL) 39 %; METAMYELOCYTES % (MANUAL) 1 %; MONOCYTES # (MANUAL) 0.4 10^3/uL (0.0-1.0); NEUTROPHILS # (MANUAL) 1.1 10^3/uL (1.5-6.6); NUCLEATED RBC (MANUAL) 1 %
[2020-05-29 04:45] LABS: DIFFERENTIAL COMMENT MANUAL DIFFERENTIAL; PLATELET ESTIMATE, MANUAL DECREASED (<130,000) (NORMAL)
[2020-05-29 04:46] LABS: BLAST CELLS % (MANUAL) 49 %
[2020-05-29 05:52] LABS: B. PARAPERTUSSIS- RESP PCR PAN NOT DETECTED; B. PERTUSSIS- RESP PCR PANEL NOT DETECTED; C. PNEUMONIAE- RESP PCR PANEL NOT DETECTED; CORONAVIRUS 229E-RESP PCR NOT DETECTED; CORONAVIRUS HKU1-RESP PCR NOT DETECTED; CORONAVIRUS NL63-RESP PCR NOT DETECTED; CORONAVIRUS OC43-RESP PCR NOT DETECTED; HUMAN METAPNEUMOVIRUS NOT DETECTED; INFLUENZA A- RESP PCR PANEL NOT DETECTED; INFLUENZA B - RESP PCR PANEL NOT DETECTED; M. PNEUMONIAE- RESP PCR PANEL NOT DETECTED; PARAINFLUENZA VIRUS 1 NOT DETECTED; PARAINFLUENZA VIRUS 2 NOT DETECTED; PARAINFLUENZA VIRUS 3 NOT DETECTED; PARAINFLUENZA VIRUS 4 NOT DETECTED; RHINOVIRUS/ENTEROVIRUS NOT DETECTED; RSV- RESP PCR PANEL NOT DETECTED; SARS-CoV-2 -RESP PCR PANEL NOT DETECTED
[2020-05-29 07:41] LABS: MUDS CUTOFF CONCENTRATIONS CUTOFF CONC BELOW:
[2020-05-29] MEDS ORDERED: VANCOMYCIN INJ 1.5 GM in SODIUM CHLORIDE 0.9% 500 ML IV STA (07:46)
[2020-05-29] MEDS ORDERED: levoFLOXacin 750 MG/150 ML 750 MG/150 ML BAG IV STA (07:46)
[2020-05-29] MEDS ORDERED: PIPERACILLIN/TAZOBACTAM 4.5 GM in SODIUM CHLORIDE 0.9% MINIBAG 100 ML IV STA (07:46)
[2020-05-29] MEDS ORDERED: SODIUM CHLORIDE 0.9% 1,000 ML IV STA (07:47)
[2020-05-29 07:58] LABS: AMPHETAMINE SCREEN,URINE POSITIVE (NEGATIVE); BARBITURATE SCREEN,UR NEGATIVE (NEGATIVE); BENZODIAZEPINES SCREEN, URINE POSITIVE (NEGATIVE); COCAINE SCREEN URINE NEGATIVE (NEGATIVE); METHADONE SCREEN, URINE NEGATIVE (NEGATIVE); METHAMPHETAMINES SCREEN, URINE POSITIVE (NEGATIVE); OPIATE SCREEN, URINE POSITIVE (NEGATIVE); OXYCODONE SCREEN, URINE POSITIVE (NEGATIVE); PROPOXYPHENE SCREEN, URINE NEGATIVE (NEGATIVE); THC CANNABINOID SCREEN, URINE NEGATIVE (NEGATIVE); TRICYCLIC ANTIDEPRESSANT,URINE NEGATIVE (NEGATIVE)
[2020-05-29] MEDS ORDERED: METOPROLOL 5 MG/5 ML VIAL IVP STA (08:26)
[2020-05-29] MEDS ORDERED: ASPIRIN 325 MG TABLET PO STA (08:26)
--- NOTE | 2020-05-29 08:54 | ED Physician Documentation ---
ED Addendum - Addendum Addendum: 05/29/20 08:54 49yo M with hx Etoh/meth sent from here to [facility] 05/08/20 with evidence of AML, WBC 44k and 50% blasts, hGb 5.7. While there had BMBx showing B-All and intubated for septic shock with MRSA bacteremia and multifocal PNA. Heme/Onc recommended HyperCVAD followed by stem cell transplant but not candidate d/t ongoing drug use. Offered hospice. From records review he was not cooperative with care and left AMA. Found using meth in the room at [facility]. Bronch found PJP PNA and started on Bactrim. Eval by psych felt had capacity to refuse care. BIBA for dyspnea/resp distress S/O from Dr. Vazquez at shift change. On my examination he is somnolent, responds to pain but nonverbal. Work-up here shows again Hemoglobin of 5.8. White count 13.4 with 49% blasts. Troponin of 255, stable renal function with a BUN of 26 and a creatinine of 1.3. He is hyperkalemic at 6.1. Bio fire panel negative. No alcohol on board. CT of the chest looking for potential PE demonstrating no PE but multilobar pneumonia with small bilateral pleural effusions and partially imaged dilatation of the right colon. BioFire respiratory panel ordered to rapidly test specifically for COVID-19 in this patient who is expected to be hospitalized. Will need transfusion and transfer. Call placed to [facility] at 7:35 AM. Will need to ask oncology there what specific type of blood he will need i.e. irradiated/leukoreduced? Given his worsening he was cultured up and placed on Zosyn, Levaquin, and vancomycin for multifocal pneumonia even though this may still be his PJP. EKG from earlier this morning reviewed from 4:02 AM. Sinus tachycardia with a rate of 118, borderline T wave abnormalities with J-point elevation in V2 and V3. No obvious ST elevation or depression. Will repeat. Second EKG done at 8:20 AM, sinus tach at 101. Less J-point elevation in V2 and V3, otherwise relatively unchanged. Note made that he does have an elevated troponin in the setting of dynamic EKG changes not diagnostic for STEMI. That said I do not think given the underlying issues he would not be a interventional candidate. Will order aspirin and some beta-blockade, Would hold off on anticoagulation now given other issues. Accepted by Deena Hernandez NP at [facility] approx. [phone], but no beds in IMCU and needs to board. Rec also call , we called no beds. She asked me to examine his belongings and make sure no methamphetamines to accompany him, I did, there were no drugs on him or in his suitcase. Ordered 2 units PRBCs, lekoreduced/irradiated p discussion with [facility]. Will need to board in ED pending bed. Will recheck labs p transfusion 05/29/20 09:54 Woke up, he is now alert and oriented. I had a long discussion with him. He understands the situation with evolving AL, active leukemia which has been untreated, pneumonia which again may be PJP, may be new. He says he would like to be discharged to the [facility]. That actually portends pretty good insight to his current situation. He has decision-making capacity I think at this point and he would like to just get 2 units of blood and then go home AGAINST MEDICAL ADVICE. 05/29/20 10:17 I also had a long conversation with his sister who is his POA, Karissa Ba ([phone]), she understands that he may well have an imminent but understands the situation and that he is currently at this point seemingly competent to pick and choose and refuse care. 05/29/20 14:47 After 2 units of blood he is feeling better, no chest pain now. Offered again to admit him or transfer him either to [facility], or he said he did not like [facility] too much, to another for tertiary facility. He continued to decline. He is alert and oriented x3. He is able to verbalize back to me that he understands that he is having a heart attack, has profound anemia, and untreated acute leukemia. Disposition left AGAINST MEDICAL ADVICE after signing AMA form Condition quite guarded Diagnosis 1. Acute lymphoblastic leukemia B-cell 2. Myocardial infarction, non-STEMI, with dynamic EKG changes 3. Profound anemia 4. Pneumocystis jirovecii pneumonia
--- NOTE | 2020-05-29 09:22 | CT Report ---
PROCEDURE: ANGIO CHEST W/WO INDICATIONS: pleuritic chest pain CONTRAST: IV CONTRAST: Optiray 320 ml: 80 PO CONTRAST: *NO PO CONTRAST TECHNIQUE: After the administration of intravenous contrast, 2 mm thick sections acquired from the pulmonary api tete to the posterior costophrenic angles. 3-dimensional maximum intensity projection (MIP) coronal a nd sagittal reformats were then acquired through the thorax. For radiation dose reduction, the follow ing was used: automated exposure control, adjustment of mA and/or kV according to patient size. COMPARISON: 05/07/[address] FINDINGS: Image quality: Excellent. Pulmonary arteries: Pulmonary arteries are normal in size, and demonstrate no intraluminal filling d efects to suggest central pulmonary embolism. Lungs and pleura: Lungs are abnormal with patchy bilateral dense pneumonia, and small bilateral pleu ral effusions posteriorly, slightly greater on the right than the left but measuring only several mil limeters in thickness this pattern was not previously present on the comparison study from April last year. No pleural effusions or pneumothorax. Central and peripheral airways are patent. Mediastinum: Heart size is normal, without pericardial effusion. No mediastinal or hilar adenopathy . Thoracic aorta is normal in caliber and enhancement. Esophagus is normal in caliber, without hiat al hernia. Bones and chest wall: No suspicious bony lesions. Ribs and thoracic spine appear intact throughout. The thyroid is normal. No axillary or supraclavicular adenopathy. Abdomen: Visualized upper abdominal solid organs appear normal in the early arterial phase of enhanc ement. IMPRESSION: Bilateral patchy pneumonia, involving the upper, mid and lower lungs, not previously present in of last year. The appearance is nonspecific but could represent a manifestation of atypical/v iral pneumonia. No pulmonary embolus found, scant bilateral pleural effusions slightly greater on the right than the left but insufficient for safe aspiration. No suspicion for empyema. Reviewed by: Lukas Brown MD on 05/29/2020 9:21 AM PST Approved by: Lukas Brown MD on 05/29/2020 9:21 AM PST Station ID: [id number]
[2020-05-29 14:40] VITALS: BP 124/86
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
== END 2020-05-29 14:55 | disposition left against medical advice (07) ==
LOC: EDUNIT# → ED 03:25
DX: I21.4 Non-ST elevation (NSTEMI) myocardial infarction (principal); R00.0 Tachycardia, unspecified; B59 Pneumocystosis; R06.82 Tachypnea, not elsewhere classified; C91.00 Acute lymphoblastic leukemia not having achieved remission; D64.89 Other specified anemias; D69.6 Thrombocytopenia, unspecified; E87.5 Hyperkalemia; F15.10 Other stimulant abuse, uncomplicated; Z20.822 Contact with and (suspected) exposure to COVID-19; Z53.29 Procedure and treatment not carried out because of patient's decision for other reasons
CPT/HCPCS: 0202U; 36415; 36430; 71275; 80053; 80306; 80320; 82550; 83605; 83690; 84484; 85025; 85610; 85730; 86850; 86900; 86901; 86920; 87040; 93005; 96365; 96366; 96367; 96368; 96375; 99284; 99285; A9270; J1170; J2060; J3370; P9040; Q9967

== ENCOUNTER 2020-06-03 21:34 | Emergency (ER) | payer MEDICAID ==
[2020-06-03] MEDS ORDERED: HYDROmorphone 1 MG/ML CARPUJECT IVP STA (22:42)
[2020-06-03] MEDS ORDERED: LORazepam 2 MG/ML VIAL IVP STA (22:42)
[2020-06-03] MEDS ORDERED: SODIUM CHLORIDE 0.9% 1,000 ML IV STA (22:42)
[2020-06-03 22:49] LABS: BASOPHILS % (AUTO) 0.1 %; EOSINOPHILS % (AUTO) 0.1 %; LYMPHOCYTES % (AUTO) 47.4 %; MEAN CORPUSCULAR HEMOGLOBIN 31.6 pg (27.0-31.0); MEAN CORPUSCULAR HGB CONC 32.4 g/dL (32.0-36.0); MEAN CORPUSCULAR VOLUME 97.7 fL (80.0-94.0); MEAN PLATELET VOLUME 9.3 fL (7.4-11.4); MONOCYTES % (AUTO) 47.1 %; NEUTROPHILS % (AUTO) 4.7 %; PLT - PLATELET COUNT 66 10^3/uL (130-450); RED BLOOD COUNT 2.15 10^6/uL (4.70-6.10); RED CELL DISTRIBUTION WIDTH 17.9 % (12.0-15.0); WHITE BLOOD COUNT 13.5 x10^3/uL (4.8-10.8)
[2020-06-03 22:51] LABS: HGB - HEMOGLOBIN 6.8 g/dL (14.0-18.0)
[2020-06-03 22:53] LABS: ABNORMAL LYMPHS % (MANUAL) 0 %; BAND NEUTROPHILS % (MANUAL) 0 %
[2020-06-03 23:04] LABS: ACETAMINOPHEN < 10 ug/mL (10-30); ALBUMIN 3.3 g/dL (3.2-5.5); ALBUMIN/GLOBULIN RATIO 0.8 (1.0-2.2); ALKALINE PHOSPHATASE 88 IU/L (42-121); ALT ALANINE AMINOTRANSFERASE 60 IU/L (10-60); AST ASPARTATE AMINOTRANSFERASE 23 IU/L (10-42); BILIRUBIN,TOTAL 0.2 mg/dL (0.2-1.0); BUN - BLOOD UREA NITROGEN 24 mg/dL (6-20); CALCIUM 9.6 mg/dL (8.5-10.3); CARBON DIOXIDE - CO2 22 mmol/L (21-32); CHLORIDE 100 mmol/L (101-111); CREATININE 1.2 mg/dL (0.6-1.2); CRP - C-REACTIVE PROTEIN 7.6 mg/dL (0-1.0); GLUCOSE 101 mg/dL (70-100); MAGNESIUM 2.1 mg/dL (1.7-2.8); SALICYLATE < 6.0 mg/dL; SODIUM 138 mmol/L (135-145); TOTAL PROTEIN 7.4 g/dL (6.7-8.2)
[2020-06-03 23:18] LABS: LYMPHOCYTES # (MANUAL) 5.3 10^3/uL (1.5-3.5); LYMPHOCYTES % (MANUAL) 39 %; MONOCYTES # (MANUAL) 0.4 10^3/uL (0.0-1.0)
[2020-06-03 23:23] LABS: DIFFERENTIAL COMMENT MANUAL DIFFERENTIAL; PLATELET ESTIMATE, MANUAL DECREASED (<130,000) (NORMAL); PLATELET MORPHOLOGY NORMAL APPEARANCE (NORMAL)
--- NOTE | 2020-06-04 00:20 | ED Physician Documentation ---
PD HPI CHEST PAIN - Stated complaint Stated Complaint: WEAKNESS,FRAIL - Chief complaint Chief Complaint: General - History obtained from History obtained from: Patient, Friend (talked with his friend Heidy on his phone concurrent with talking with patient.) - History of Present Illness Timing - onset: How many weeks ago (The patient has had weakness, chest pains, dyspnea for over a month. Seen in ER 05/07/20 and Dx with pneumonia and apparent new leukemia. Transferred to [facility] and was there for several days, Rx for PJP pneumonia Dx by bronch, and had bone marrow biopsy showing B-cell ALL. He signed out AMA though.) Timing - onset during: Light activity Timing - duration: Weeks Timing - details: Gradual onset, Waxing and waning Quality: Aching, Pain Location: Substernal, Left chest Radiation: No: Neck, Back Improved by: Rest Associated symptoms: Shortness of air, General Weakness, Cough (his cough has decreased since admitted to [facility] few weeks ago. Has been taking Bactrim BID and still on it (at end of the Rx course, per patient).). No: Nausea, Palpitations Recently seen: Clinic (seen by PCP few days ago and Rx pain meds for comfort/treatment of the chest pain/general pains. Patient starting to accept idea of chemo/treatment. PCP starting to get referral going through [facility].), Admitted ([facility] 05/07 for several days. Left AMA and states was not accepting diagnosis at the time. Seen in ER 05/29/20 for dyspnea/weakness and got transfused 2 unites RBC, and left ER. Saw Oncologist in Clinic at [facility] 05/31/20 and declined chemo/hospitalization then. Is now ready for treatment.), Other (he has talked with good friend as well as family, and he is accepting need for treatment/chemo at this time. He states he needs meds for anxiety. He states has not done any meth/cannibis in several days now.) Review of Systems Constitutional: reports: Myalgias, Fatigue. denies: Fever, Chills Nose: denies: Rhinorrhea / runny nose, Congestion Throat: denies: Sore throat Cardiac: reports: Chest pain / pressure. denies: Palpitations, Pedal edema, Calf pain Respiratory: reports: Dyspnea. denies: Cough, Hemoptysis, Wheezing GI: reports: Nausea. denies: Abdominal Pain, Vomiting, Constipation, Diarrhea Skin: denies: Rash, Lesions Neurologic: reports: Generalized weakness. denies: Focal weakness, Near syncope Psychiatric: reports: Depressed (recently, due to acute diagnoses.), Anxiety. denies: Hallucinations, Delusions Endocrine: denies: Weight loss PD PAST MEDICAL HISTORY - Past Medical History Past Medical History: Yes Cardiovascular: None Respiratory: None Neuro: None Endocrine/Autoimmune: Other Psych: Depression, Anxiety Other Past Medical History: Leukemia - Past Surgical History Past Surgical History: No - Present Medications Home Medications: Ambulatory Orders Medication Instructions Recorded Confirmed Naproxen [Naprosyn] 220 mg PO Q8H PRN 05/29/20 06/01/20 OLANZapine [Zyprexa] 10 mg PO DAILY 05/29/20 06/01/20 Sulfamethox/Trimeth 800/160 3 each PO TID 05/29/20 06/01/20 [Bactrim Ds 800/160] Tamsulosin HCl [Flomax] 0.4 mg PO DAILY 05/29/20 06/01/20 oxyCODONE/ACET 5/325 [Percocet 5 1 - 2 each PO Q6HR PRN 05/29/20 06/01/20 mg/325 mg] - Allergies Allergies/Adverse Reactions: Allergies Allergy/AdvReac Type Severity Reaction Status Date / Time albuterol Allergy Respiratory Verified 06/03/20 21:40 - Social History Does the pt smoke?: No Smoking Status: Never smoker Does the pt drink ETOH?: Yes Does the pt have substance abuse?: No - Immunizations Immunizations are current?: No - POLST Patient has POLST: No PD ED PE NORMAL - Vitals Vital signs reviewed: Yes (tachycardic, but regular) - General General: Alert and oriented X 3, No acute distress, Well developed/nourished - HEENT HEENT: Ears normal, Pharynx benign. No: Moist mucous membranes - Neck Neck: Supple, no meningeal sign, No adenopathy - Cardiac Cardiac: RRR (regular but mild tachycardia), No murmur - Respiratory Respiratory: No respiratory distress. No: Clear bilaterally (some mild fine crackles heard diffusely. No wet sounds. No wheezes. ) - Abdomen Abdomen: Soft, Non tender. No: Normal bowel sounds (diminished) - Derm Derm: Normal color, Warm and dry - Extremities Extremities: No tenderness to palpate, Normal ROM s pain, No edema, No calf tenderness / cord - Neuro Neuro: Alert and oriented X 3, No motor deficit, Normal speech Results - Vitals Vitals: Vital Signs - 24 hr 06/03/20 06/03/20 06/03/20 21:40 22:30 22:50 Temperature 36.6 C Heart Rate 113 H 109 H 109 H Respiratory 16 20 17 Rate Blood Pressure 165/84 H 137/75 H 131/79 H O2 Saturation 100 96 96 06/04/20 06/04/20 06/04/20 00:00 00:11 00:29 Temperature 37 C 30 C L Heart Rate 100 98 97 Respiratory 15 15 15 Rate Blood Pressure 130/74 126/73 118/73 O2 Saturation 94 06/04/20 06/04/20 06/04/20 00:30 01:00 01:27 Temperature 37.2 C Heart Rate 97 92 91 Respiratory 15 15 15 Rate Blood Pressure 123/73 131/82 H 131/82 H O2 Saturation 95 97 06/04/20 06/04/20 06/04/20 01:30 02:00 04:00 Temperature 36.9 C Heart Rate 92 93 97 Respiratory 15 16 16 Rate Blood Pressure 131/82 H 132/84 H 117/88 H O2 Saturation 97 98 95 06/04/20 06:00 Temperature 36.6 C Heart Rate 98 Respiratory 17 Rate Blood Pressure 124/86 H O2 Saturation 98 Oxygen O2 Source Room air - Labs Labs: Laboratory Tests 06/03/20 06/03/20 06/03/20 21:45 21:45 22:53 WBC 13.5 H RBC 2.15 L Hgb 6.8 L* Hct 21.0 L MCV 97.7 H MCH 31.6 H MCHC 32.4 RDW 17.9 H Plt Count 66 L MPV 9.3 Neut # (Auto) Not Reportable Lymph # (Auto) Not Reportable [place] # (Auto) Not Reportable Eos # (Auto) Not Reportable Baso # (Auto) Not Reportable Absolute Nucleated RBC Not Reportable Total Counted 100 Band Neuts % (Manual) 0 Abnorm Lymph % (Manual) 0 Blast Cells % 53 H* Nucleated RBC % Not Reportable Neutrophils # (Manual) 0.7 L Lymphocytes # (Manual) 5.3 H Monocytes # (Manual) 0.4 Eosinophils # (Manual) 0.0 Basophils # (Manual) 0.0 Differential Comment MANUAL DIFFERENTIAL WBC Morphology NORMAL JEANMARIE Platelet Estimate DECREASED (<130,000) Platelet Morphology NORMAL APPEARANCE RBC Morph Micro Appear 1+ POLYCHROMASIA PT INR APTT Sodium 138 Potassium 5.0 Chloride 100 L Carbon Dioxide 22 Anion Gap 16.0 H BUN 24 H Creatinine 1.2 Estimated GFR (MDRD) 64 L Glucose 101 H Uric Acid Calcium 9.6 Ionized Calcium NO Magnesium 2.1 Total Bilirubin 0.2 AST 23 ALT 60 Alkaline Phosphatase 88 Lactate Dehydrogenase Troponin I High Sens C-Reactive Protein 7.6 H Total Protein 7.4 Albumin 3.3 Globulin 4.1 Albumin/Globulin Ratio 0.8 L Nasal Adenovirus (PCR) Nasal B. parapertussis DNA (PCR) Nasal Coronavir 229E PCR Nasal Coronavir HKU1 PCR Nasal Coronavir NL63 PCR Nasal Coronavir OC43 PCR Nasal Enterovir/Rhinovir PCR Nasal Influenza B PCR Nasal Influenza A PCR Nasal Parainfluen 1 PCR Nasal Parainfluen 2 PCR Nasal Parainfluen 3 PCR Nasal Parainfluen 4 PCR Nasal RSV (PCR) Nasal B.pertussis DNA PCR Nasal C.pneumoniae (PCR) Gerald Human Metapneumo PCR Nasal M.pneumoniae (PCR) Nasal SARS-CoV-2 (PCR) Salicylates < 6.0 Acetaminophen < 10 L Ethyl Alcohol < 5.0 Blood Type A POSITIVE Antibody Screen NEGATIVE Crossmatch IS Only See Detail 06/03/20 06/03/20 06/04/20 23:28 23:28 02:05 WBC RBC Hgb Hct MCV MCH MCHC RDW Plt Count MPV Neut # (Auto) Lymph # (Auto) [place] # (Auto) Eos # (Auto) Baso # (Auto) Absolute Nucleated RBC Total Counted Band Neuts % (Manual) Abnorm Lymph % (Manual) Blast Cells % Nucleated RBC % Neutrophils # (Manual) Lymphocytes # (Manual) Monocytes # (Manual) Eosinophils # (Manual) Basophils # (Manual) Differential Comment WBC Morphology Platelet Estimate Platelet Morphology RBC Morph Micro Appear PT 13.6 H INR 1.2 APTT 26.9 Sodium Potassium Chloride Carbon Dioxide Anion Gap BUN Creatinine Estimated GFR (MDRD) Glucose Uric Acid Calcium Ionized Calcium Magnesium Total Bilirubin AST ALT Alkaline Phosphatase Lactate Dehydrogenase 247 H Troponin I High Sens 33.0 H* C-Reactive Protein Total Protein Albumin Globulin Albumin/Globulin Ratio Nasal Adenovirus (PCR) Nasal B. parapertussis DNA (PCR) Nasal Coronavir 229E PCR Nasal Coronavir HKU1 PCR Nasal Coronavir NL63 PCR Nasal Coronavir OC43 PCR Nasal Enterovir/Rhinovir PCR Nasal Influenza B PCR Nasal Influenza A PCR Nasal Parainfluen 1 PCR Nasal Parainfluen 2 PCR Nasal Parainfluen 3 PCR Nasal Parainfluen 4 PCR Nasal RSV (PCR) Nasal B.pertussis DNA PCR Nasal C.pneumoniae (PCR) Gerald Human Metapneumo PCR Nasal M.pneumoniae (PCR) Nasal SARS-CoV-2 (PCR) Salicylates Acetaminophen Ethyl Alcohol Blood Type Antibody Screen Crossmatch IS Only 06/04/20 06/04/20 02:05 02:52 WBC RBC Hgb Hct MCV MCH MCHC RDW Plt Count MPV Neut # (Auto) Lymph # (Auto) [place] # (Auto) Eos # (Auto) Baso # (Auto) Absolute Nucleated RBC Total Counted Band Neuts % (Manual) Abnorm Lymph % (Manual) Blast Cells % Nucleated RBC % Neutrophils # (Manual) Lymphocytes # (Manual) Monocytes # (Manual) Eosinophils # (Manual) Basophils # (Manual) Differential Comment WBC Morphology Platelet Estimate Platelet Morphology RBC Morph Micro Appear PT INR APTT Sodium Potassium Chloride Carbon Dioxide Anion Gap BUN Creatinine Estimated GFR (MDRD) Glucose Uric Acid 3.9 Calcium Ionized Calcium Magnesium Total Bilirubin AST ALT Alkaline Phosphatase Lactate Dehydrogenase Troponin I High Sens C-Reactive Protein Total Protein Albumin Globulin Albumin/Globulin Ratio Nasal Adenovirus (PCR) NOT DETECTED Nasal B. parapertussis DNA (PCR) NOT DETECTED Nasal Coronavir 229E PCR NOT DETECTED Nasal Coronavir HKU1 PCR NOT DETECTED Nasal Coronavir NL63 PCR NOT DETECTED Nasal Coronavir OC43 PCR NOT DETECTED Nasal Enterovir/Rhinovir PCR NOT DETECTED Nasal Influenza B PCR NOT DETECTED Nasal Influenza A PCR NOT DETECTED Nasal Parainfluen 1 PCR NOT DETECTED Nasal Parainfluen 2 PCR NOT DETECTED Nasal Parainfluen 3 PCR NOT DETECTED Nasal Parainfluen 4 PCR NOT DETECTED Nasal RSV (PCR) NOT DETECTED Nasal B.pertussis DNA PCR NOT DETECTED Nasal C.pneumoniae (PCR) NOT DETECTED Gerald Human Metapneumo PCR NOT DETECTED Nasal M.pneumoniae (PCR) NOT DETECTED Nasal SARS-CoV-2 (PCR) NOT DETECTED Salicylates Acetaminophen Ethyl Alcohol Blood Type Antibody Screen Crossmatch IS Only PD MEDICAL DECISION MAKING - ED course Complexity details: reviewed results (CXR seems similar to recent and clinically less cough, so does not seem worsening infection. CBC still abnormal. Is anemia at 6.8 Hgb. Will give 1 unit RBCs. Troponin significantly decreased so seems trailing off of prior high number. May have had some heart event recent couple weeks.), considered differential, d/w patient, d/w senior consumer insights consultant (talked with [facility]cology Medical swimming pool salesperson, for Acute Leukemias, Dr. Leeann Matthews, who accepted patient in transfer due to needing acute treatment, with concerns also of Dx of PJP pneumonia and neutropenia, though his pneumonia seems clinically stable. ), other (talked with his friend as well, on phone. ) ED course: states they will accept the patient in transfer on the acute leukemia service, Dr. Matthews. They did not have a bed immediately available but are able to take the patient to arrive at 11 AM. 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
[2020-06-04] MEDS ORDERED: HYDROmorphone 1 MG/ML CARPUJECT IVP STA ×2 (00:39→07:20)
[2020-06-04 02:15] LABS: INR 1.2 (0.8-1.2); PT - PROTHROMBIN TIME 13.6 secs (9.9-12.6)
[2020-06-04 02:22] LABS: PARTIAL THROMBOPLASTIN TIME 26.9 secs (24.9-33.3)
[2020-06-04 03:43] LABS: C. PNEUMONIAE- RESP PCR PANEL NOT DETECTED
[2020-06-04] MEDS ORDERED: SODIUM CHLORIDE 0.9% 1,000 ML IV STA ×2 (04:56→07:20)
--- NOTE | 2020-06-04 08:44 | XRAY Report ---
PROCEDURE: Chest 1 View X-Ray INDICATIONS: chest pain TECHNIQUE: One view of the chest was acquired. COMPARISON: 05/07/2020 FINDINGS: Surgical changes and devices: None. Lungs and pleura: No pleural effusions or pneumothorax. Consolidative left midlung opacity. Mediastinum: Mediastinal contours appear normal. Heart size is normal. Bones and chest wall: No suspicious bony lesions. Overlying soft tissues appear unremarkable. IMPRESSION: Patchy left midlung consolidation suggestive of pneumonia. Recommend follow-up after treatment to doc ument resolution. Findings are concordant with the preliminary study interpretation provided at the t mio of the study. Reviewed by: Candelario Em MD on 06/04/2020 8:43 AM PST Approved by: Candelario Em MD on 06/04/2020 8:43 AM PST Station ID: [id number]
[2020-06-04 10:05] VITALS: BP 133/88
[2020-06-04] MEDS ORDERED: LORazepam 2 MG/ML VIAL IVP STA (10:12)
== END 2020-06-04 10:27 | disposition short-term general hospital (02) ==
LOC: ED 21:34
DX: D69.6 Thrombocytopenia, unspecified (principal); D64.9 Anemia, unspecified; D70.9 Neutropenia, unspecified; C91.00 Acute lymphoblastic leukemia not having achieved remission; B59 Pneumocystosis; R07.2 Precordial pain; R00.0 Tachycardia, unspecified; Z20.822 Contact with and (suspected) exposure to COVID-19; F15.10 Other stimulant abuse, uncomplicated; F12.10 Cannabis abuse, uncomplicated; F41.9 Anxiety disorder, unspecified
CPT/HCPCS: 0202U; 36415; 36430; 71045; 80053; 80307; 80320; 80329; 83615; 83735; 84484; 84550; 85025; 85610; 85730; 86140; 86850; 86900; 86901; 86920; 93005; 96361; 96374; 96375; 96376; 99284; 99285; J1170; J2060; P9016

== ENCOUNTER 2020-08-19 13:16 | Outpatient (CLI) | payer MEDICAID | END 2020-08-19 13:17 | disposition home or self-care (01) | LOC: LAB 13:16 | PROVIDERS: ATTEND Internal Medicine | DX: Z01.812 Encounter for preprocedural laboratory examination (principal); C91.00 Acute lymphoblastic leukemia not having achieved remission; Z20.822 Contact with and (suspected) exposure to COVID-19 ==

== ENCOUNTER 2020-09-17 15:27 | Outpatient (CLI) | payer MEDICAID ==
--- NOTE | 2020-09-17 15:54 | XRAY Report ---
PROCEDURE: Chest 2 View X-Ray INDICATIONS: PNEUMONIA, UNSPECIFIED ORGANISM TECHNIQUE: 2 view(s) of the chest. COMPARISON: 06/03/2020 FINDINGS: Surgical changes and devices: ORIF of the right proximal humerus. Lungs and pleura: No pleural effusions or pneumothorax. Lungs are clear. Mediastinum: Mediastinal contours are normal. Heart size is normal. Bones and chest wall: No suspicious bony abnormalities. Soft tissues appear unremarkable. IMPRESSION: No acute process. Reviewed by: Jimmy Sharp MD on 09/17/2020 3:52 PM PDT Approved by: Jimmy Sharp MD on 09/17/2020 3:52 PM PDT Station ID: [id number]
== END 2020-09-17 15:28 | disposition home or self-care (01) ==
LOC: DI.S 15:27
PROVIDERS: ATTEND Nurse Practitioner Family
DX: J18.9 Pneumonia, unspecified organism (principal)

== ENCOUNTER 2020-09-24 16:21 | Outpatient (CLI) | payer MEDICAID | END 2020-09-24 16:22 | disposition home or self-care (01) | LOC: COV 16:21 | PROVIDERS: ATTEND Nurse Practitioner Adult Health | DX: Z01.812 Encounter for preprocedural laboratory examination (principal); Z20.822 Contact with and (suspected) exposure to COVID-19 ==

== ENCOUNTER 2021-05-21 11:13 | Outpatient (CLI) | payer MEDICAID ==
--- NOTE | 2021-05-21 16:51 | CONSULTATION NOTE ---
Palliative Care Follow Up - Referral Referring Provider: Dr. 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 He recently had a [facility] stay from 04/28-05/09 in the setting of new headaches, leukocytosis, neutropenia, anemia and thrombocytopenia. He was treated both for bacterial and fungal infection, and did receive a treatment of IT methotrexate. He is trying to return to have another treatment, though this did get canceled in the context some thought he was on hospice. He is continuing with his ponatinib, but reports he is getting low on this. He is having his sister contact [facility] for refill. I met patient for the first time, patient has significant pain related to pressure and headaches, had been titrated up on oxycodone 10 mg, currently is using 2 tabs about every 4-5 hours for total of 8-10 in 24 hours. He takes it as soon as he starts to feel the pain building, but does feel like it has been adequately controlled. Patient has a history of both noncompliance and substance abuse, he is quite adamant he is committed to living. [facility] Reports he is used 2 treatments total, but is still planning to continue with his treatment plan. Unfortunately he did not show up on Wednesday for his lab draw, and transfusion. He was snowed in, and did not make contact until yesterday, with rescheduled for labs today. 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 Patient is making eye contact, is much clearer, engaged in conversation today. He has been feeling shortness of breath, as well as some intermittent chest pain with activity, not surprising in the setting of a hemoglobin of 6.2. Reiterated again patient's need for compliance if his goal is to continue with treatment, aware he has an appointment on Wednesday. We did discuss in the context of pain management, looking at something more time-released, transitioning over to long-acting morphine with 30 3 times daily, current equal analgesic would actually be 150 of morphine, but will start slow. Patient was given only 2 weeks worth, does have another weeks worth of oxycodone, will do 1 to 2 weeks of distribution of medications given concerns. Patient is aware and will bring in medications for pill counts. Past Medical History: Patient's original diagnosis of AL L was 04/2020. Known history of pericardial effusion, history of pneumonia P NEY, recent bacterial/fungal sinusitis, worsening vision changes, depression, anxiety, fatigue, history of MRSA. Social History - Living Situation Living arrangement: At home Living Situation: With spouse/s.o. Support System: Patient lives at home with his significant other Dilshad, they have been together for over a year. He continues to want to support her, does feel significant amount of distress over causing her distress. Does identify his Sister Sara is his main support, she is also his DPOA and has been helping him advocate for services and appointments. He reports he has lots of animals at home, and [place]. Medications/Allergies - Medications Home Medications: Ambulatory Orders Medication Instructions Recorded Confirmed Sulfamethox/Trimeth 800/160 1 each PO BID 05/29/20 05/22/21 [Bactrim Ds 800/160] Tamsulosin HCl [Flomax] 0.4 mg PO DAILY 05/29/20 05/22/21 Acyclovir 800 mg PO BID 05/15/21 05/15/21 Fluconazole [Diflucan] 200 mg PO DAILY 05/15/21 05/22/21 Oxycodone HCl 10 - 20 mg PO Q4HR PRN MDD 10 tabs 05/15/21 05/22/21 Ponatinib HCl [Iclusig] 30 mg PO DAILY 05/15/21 05/22/21 Ursodiol [Shaq] 500 mg PO BID 05/15/21 05/22/21 allopurinoL [Allopurinol] 300 mg PO BID 05/15/21 05/22/21 levoFLOXacin [Levofloxacin] 750 mg PO DAILY 05/15/21 05/22/21 Morphine Sulfate ER [Ms Contin] 30 mg PO TID 05/22/21 05/22/21 - Allergies Allergies/Adverse Reactions: Allergies Allergy/AdvReac Type Severity Reaction Status Date / Time albuterol Allergy Respiratory Verified 10/11/20 13:47 Review of Systems - Constitutional Constitutional: reports: Fatigue, Weakness. denies: Fever, Chills - Eyes Eyes: reports: Vision loss - Ears, Nose & Throat Ears, Nose & Throat: reports: Hearing loss. denies: Mouth lesions, Bleeding gums - Cardiovascular Cardiovascular: reports: Chest pain (with exertion), Lightheadedness, Exertional dyspnea, Decr. exercise tolerance. denies: Edema - Respiratory Respiratory: reports: SOB with exertion. denies: Cough, Wheezing, SOB at rest - Gastrointestinal Gastrointestinal: reports: Early satiety. denies: Abdominal pain, Constipation, Diarrhea, Nausea, Reflux/heartburn - Musculoskeletal Musculoskeletal: reports: Stiffness, Muscle weakness - Integumentary Integumentary: reports: Dryness - Neurological Neurological: reports: General weakness, Numbness, Memory problems - Psychiatric Psychiatric: reports: Depression, Anxiety - Endocrine Endocrine: reports: Intolerance to cold - Hematologic/Lymphatic Hematologic/Lymph: reports: Anemia, Recurrent infections (recently hospitalized for bacterial/fungal sinusitis) - All Other Systems All Other Systems: reports: Other (limited with STM deficits) Physical Exam - Vital Signs Temperature: 36.6 C Pulse Rate: 89 Respiratory Rate: 18 Blood Pressure: 126/62 - Physical Exam General Appearance: positive: No acute distress, Alert, Anxious (about blood draw/needlles) Eyes Bilateral: positive: Conjunctivae nml, No scleral icterus, Other (swelling behind eyes continues to improve) ENT: positive: No signs of dehydration Neck: positive: Trachea midline Cardiovascular: positive: Regular rate & rhythm Respiratory: positive: No respiratory distress, Diminished in bases. negative: Wheezes Abdomen: positive: Non-tender, Soft Skin: positive: Pallor, Dryness, Bruising Extremities: positive: No pedal edema Neurologic/Psychiatric: positive: Oriented x3, Mood/affect nml, Weakness, Flat affect Palliative Care - POLST Patient has POLST: Yes POLST Status: DNR, Selective Treatment Pain: Pain improved, Location (generalized achiness/pain in "head" mostly loca krystal behind eyes; worst 7/10 takes oxycodone 2 tabs before builds; using 8-10 tabs) Tiredness/Fatigue: Moderate (4-6) Drowsiness/Sedation: Mild (1-3) Nausea: None Anorexia: Mild (1-3) Dyspnea: Moderate (4-6) Depression: Mild (1-3) Anxiety: Moderate (4-6) Feelings of wellbeing/Perceived Quality of Life: Fair, Acceptable, Improved Sleep: Sleep improved Constipation: Yes, Opoid induced, Managed Performance Status: Patient had slept most of Wednesday, I did report had a good Holman and was interactive and able to cook specialty. He did get out of the snow this morning, patient has been instructed to get rides, not to drive. He is managing his ADLs, but does find himself quite fatigued, limited both by his dyspnea and wea kness and pain - Palliative Care Discussion: Patient does engage with [facility] today, reports he is continuing to seek treatment. He reports he is taking his oral chemotherapy, and trying to get his appointment for his IT methotrexate. Reports he is supplementing with his RIFE. He does feel like this is helping he is only had 2 treatments only, he is quite excited about this, understands it destroys cancer cells, he is push fluids and then takes laxatives to get rid of the residual. He is seeking out treatment so does not address the fact he did not follow through on most treatments offered to him so far. He does say he wants to live, but does understand there are multiple things he needs to do to get his affairs in order. We did discuss hoping for the best but also preparing for the worse. He does have a belief system when his time is due his time is due. He continues to worry about the impact of his illness on those around him, have encouraged him to bring Alek to his next appointment. Patient did reference his DO NOT RESUSCITATE, we did complete a POLST with DN AR/DNI and selective treatments at last appointment. Results - Lab Results Lab results reviewed: Yes Lab and Imaging Results: Slight improvement with hemoglobin 6.2 his last hemoglobin on 05/15 was 6.7 where he received 1 unit. Platelets are increased to 69,000, WBC to 0.8, neutrophils 0.1; creatinine 1.3, GFR 58 Impression and Recommendations - Palliative Care Impression: This is a 50-year-old gentleman who presents with B-cell acute lymphoblastic leukemia relapse, with HIGH PRESSURE BOILER OPERATOR lymphoma involvement. Patient has been having acute on chronic pain related to headaches and HIGH PRESSURE BOILER OPERATOR symptoms, these have improved with [id number] use of 20 mg of oxycodone, per total of around between 80 and 100 mg. Will transition to long-acting. Patient does understand the seriousness of his illness though is wanting to continue to pursue treatment options as supportive care in the context of transfusions and continued cancer treatment. He does have an integrated approach with alternative treatment with radiofrequency machine. Palliative care has been introduced to the patient, working with pain and symptom management, continue to build rapport, and titrate medications to effect. Recommendations/Counseling Done: 1. Pain of neoplastic origin. Patient does have improved pain management, after much discussion weighing benefits and burdens, patient would like to "not zoe the pain", we will go ahead and initiate long-acting MS Contin, instructed to start with 30 mg twice daily, if tolerates without sedation or nausea to increase to 3 times daily day #2. This is to replace his oxycodone with only pain spike use, would expect oxycodone use to decrease. Patient verbalizes understanding. This is all printed out for him and reviewed multiple times. Did order ondansetron as well, as patient perceives he does not have as needed medication for nausea available. 2. Constipation. Patient reports he is doing fine with constipation at this point in time, is using MiraLAX and senna of unknown quantity. 3. Anxiety. Patient is much more relaxed with [employer] SAL[employer] today, is able to share his hopes as far as wanting to have prolonged survival, is integrating his radiofrequency machine RIF E. In review of how it works, does not appear to be something that would cause harm or interfere with his current treatments. Did encourage him to be careful with the laxative component of this, as do not want to lose food and fluids. 4. Advanced care planning. Patient does understand the seriousness of his illness, he is hoping to prove everybody wrong. We continue to work on paradox, and hoping for the best and participating in treatment and adherence to schedule including blood transfusions, labs, as well as medications. Encouraged him to continue to work on putting in place and getting organized around his legal and financial affairs. Patient is feeling somewhat better with his pain control, feels like he can move forward on this, unfortunately we were in the middle of a snowstorm in the holiday. Patient does have POLST in place with do not presentation and selective treatments. DPOA is his sister Karissa Mcdonnell [phone] 60 minutes with review of labs, notes, [id number] with patient, counseling regarding pain and symptom management, anticipatory guidance, and coordination of care with oncology team
== END 2021-05-21 11:14 | disposition home or self-care (01) ==
LOC: PC 11:13
PROVIDERS: ATTEND Nurse Practitioner Adult Health
DX: Z51.5 Encounter for palliative care (principal); G89.3 Neoplasm related pain (acute) (chronic); R51.9 Headache, unspecified; C91.90 Lymphoid leukemia, unspecified not having achieved remission; C72.9 Malignant neoplasm of central nervous system, unspecified; K59.03 Drug induced constipation; T40.2X5A Adverse effect of other opioids, initial encounter; F41.9 Anxiety disorder, unspecified; Z79.891 Long term (current) use of opiate analgesic; Z79.899 Other long term (current) drug therapy; Z66 Do not resuscitate
CPT/HCPCS: 99354

== ENCOUNTER 2021-05-26 09:35 | Outpatient (CLI) | payer MEDICAID ==
--- NOTE | 2021-05-26 20:26 | CONSULTATION NOTE ---
Palliative Care Follow Up - Referral Referring Provider: Dr. 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 He recently had a [facility] stay from 04/28-05/09 in the setting of new headaches, leukocytosis, neutropenia, anemia and thrombocytopenia. He was treated both for bacterial and fungal infection, and did receive a treatment of IT methotrexate. He is trying to return to have another treatment, he has not confirmed appointment, though did make contact with Dr. Steel office and it the appointment is pending, had gotten cancelled as thought patient was transitioning to hospice. He is continuing with his ponatinib, but reports he is getting low on this. He was quite agitated as he had a letter from 04/08 showing it was denied by insurance. In review with RN from Dr. Barrios office, it has been since approved, phone number of specialty pharmacy obtained for patient to make arrangements for delivery. Patient had been experiencing escalating pain related to headaches, with recent transition to time-released morphine 30 mg 3 times a day with last visit in attempt to improve pain control, patient did ever coal picker prescription, reports pain has diminished significantly over the last several days had been using up to 100 mg of oxycodone for pain control, he is taking only 40-50 mg laast 24 hours. Will cancel morphine prescription, patient did bring his pill bottle, has adequate amounts of oxycodone for another week. He is quite pleased he is feeling better, reports his vision though still not back to baseline, has improved. No further diplopia, pressure is less behind his eyes, still has a feeling the room is "darker" but has not worsened. He is able to read and concentrate more on his phone, so is quite pleased with his current improvement in TRANSPORTATION WORKER symptoms. Patient has a history of both noncompliance and substance abuse, he is quite adamant he is committed to living. He currently is also working with [facility]. Reports he is used 2 treatments over weekend and is still planning to continue with his treatment plan. His labs continue to improve today with no need for transfusion with hemoglobin 7.7, platelets 172, remains neutropenic with 0.2 and reviewed need to continue compliance with prophalaxis. Significant other sets up medications, to help with compliance clarify regimen with Dr. Barrios office from discharge to facilitate prescription transfer to local pharmacy. .Patient has a severe needle phobia, they were able to draw labs with placement of a catheter. He is quite thankful and pleased he has not needed a transfusion. He is in good spirits, making good eye contact today, is more engaged in his treatment plan as far as follow through. Is aware needs to follow through on pending IT appointment, will call if has not heard in the next 24 hours. Past Medical History: Patient's original diagnosis of AL L was 04/2020. Known history of pericardial effusion, history of pneumonia P NEY, recent bacterial/fungal sinusitis, worsening vision changes, depression, anxiety, fatigue, history of MRSA. Social History - Living Situation Living arrangement: At home Living Situation: With spouse/s.o. Support System: Patient lives at home with his significant other Dilshad, they have been together over a year. She has yet to respond are accompanying him into appointments, though requested. Have been writing instructions and notes to facilitate communication. She is setting up his medications. He does have a Sister Karissa Renee who is his DPOA, and does help try and advocate and navigate the medical system for him. He has 1 son, though is currently not involved in his current treatment support Medications/Allergies - Medications Home Medications: Ambulatory Orders Medication Instructions Recorded Confirmed Sulfamethox/Trimeth 800/160 1 each PO BID MDD Wednesday, Wednesday05/29/20 05/27/21 [Bactrim Ds 800/160] Tamsulosin HCl [Flomax] 0.4 mg PO DAILY 05/29/20 05/27/21 Acyclovir 800 mg PO BID 05/15/21 05/27/21 Fluconazole [Diflucan] 200 mg PO DAILY 05/15/21 05/27/21 Oxycodone HCl 10 - 20 mg PO Q4HR PRN MDD 8 tabs 05/15/21 05/27/21 Ponatinib HCl [Iclusig] 30 mg PO DAILY 05/15/21 05/27/21 Ursodiol [Shaq] 500 mg PO BID 05/15/21 05/27/21 allopurinoL [Allopurinol] 300 mg PO BID 05/15/21 05/27/21 levoFLOXacin [Levofloxacin] 750 mg PO DAILY MDD ANC <500 05/15/21 05/27/21 - Allergies Allergies/Adverse Reactions: Allergies Allergy/AdvReac Type Severity Reaction Status Date / Time albuterol Allergy Respiratory Verified 10/11/20 13:47 Review of Systems - Constitutional Constitutional: reports: Fatigue (improved), Weakness (improved), Weight loss. denies: Fever, Chills - Eyes Eyes: reports: Vision loss, Other (improved but not back to baseline; pressure improved). denies: Dipolpia - Ears, Nose & Throat Ears, Nose & Throat: reports: Postnasal drainage. denies: Mouth lesions - Cardiovascular Cardiovascular: reports: Lightheadedness (improved), Exertional dyspnea, Decr. exercise tolerance. denies: Palpitations, Chest pain, Edema - Respiratory Respiratory: reports: SOB with exertion. denies: Cough, SOB at rest - Gastrointestinal Gastrointestinal: reports: Early satiety. denies: Abdominal pain, Constipation, Nausea, Reflux/heartburn - Genitourinary Genitourinary: reports: Frequency - Musculoskeletal Musculoskeletal: reports: Stiffness, Muscle weakness, Gout (reports had "flare" in his foot the last week but currently resolved) - Integumentary Integumentary: reports: Dryness. denies: Rash - Neurological Neurological: reports: General weakness, Headache (improved), Memory problems - Psychiatric Psychiatric: reports: Anxiety (needle phobia; with pending LP; has pending lorazepam RX to take one hour before; will coal picker at that time) - Hematologic/Lymphatic Hematologic/Lymph: reports: Anemia, Recurrent infections (recent hospitalization) - All Other Systems All Other Systems: reports: Other (limited with recall) Physical Exam - Vital Signs Temperature: 37.0 C Pulse Rate: 82 Respiratory Rate: 18 Blood Pressure: 128/68 - Physical Exam General Appearance: positive: No acute distress, Alert, Anxious Eyes Bilateral: positive: Other (no perceivable swelling or protrusion) ENT: positive: No signs of dehydration Neck: positive: Trachea midline Cardiovascular: positive: Regular rate & rhythm Respiratory: positive: No respiratory distress Abdomen: positive: Non-tender, Soft Skin: positive: Pallor. negative: Jaundice Extremities: positive: No pedal edema Neurologic/Psychiatric: positive: Oriented x3, Mood/affect nml Palliative Care - POLST Patient has POLST: Yes POLST Status: DNR, Selective Treatment Pain: Pain improved, Location (diffuse joint; headache behind eyes improved last few days), Severity (3/10) Tiredness/Fatigue: Mild (1-3) Drowsiness/Sedation: Mild (1-3) Anorexia: Mild (1-3) Dyspnea: Mild (1-3) Depression: Mild (1-3) Anxiety: Mild (1-3) Feelings of wellbeing/Perceived Quality of Life: Good, Acceptable, Improved Sleep: Sleeps well, Sleep improved Constipation: Yes, Opoid induced, Managed Performance Status: Patient is feeling somewhat stronger, denies chest pain with exertion at this point. Is able to manage his ADLs though remains with generalized weakness - Palliative Care Discussion: .Patient is very "stoked" that his counts have improved, he is feeling better. He is feeling more hopeful at this point in time. He was quite agitated on arrival, related to his letter of denial for his medication, though reviewed that this was set back in March. Patient does attributed many of his improvements to his R eye FT, but is also engaged in continue to work with his oral chemo and committed to follow through for his IT methotrexate treatments. Patient had a short-term goal of making it through New Year's, is very pleased to be feeling better as well as moving forward. Results - Lab Results Lab results reviewed: Yes Lab and Imaging Results: BUN 21, Creat 1.3; GFR 58; Hgb 7.7; plts 172; WBC 0.8 ANC 0.2 Impression and Recommendations - Palliative Care Impression: This is a 50-year-old gentleman who has relapsed/refractory B-cell acute lymphoblastic leukemia with TRANSPORTATION WORKER involvement. Patient has had dramatic improvement in his headache and diffuse overall pain, did not initiate time release morphine, is managed on intermittent oxycodone 10 mg every 4 hours at this point. Patient is engaged and hopeful, has been taking his ponatinib, and is planning to go to IT MTX appointment. Patient is encouraged with improvement in counts, is supplementing his treatment plan with his radiofrequency treatments RIFT. Palliative care continue to follow for symptom management, psychosocial support, anticipatory guidance, and coordination of care Recommendations/Counseling Done: 1. Pain of neoplastic origin. Patient's pain is improved dramatically, over the last few days. Patient presents today with a 3 out of 10 pain with only one oxycodone 10 mg. He has been able to decrease his total amount, did not initiate time-released morphine, will deputy county counsel this prescription. We will continue to monitor, patient has adequate amount for a week supply. 2. Medication adherence. Facilitated follow up regarding ponatinib, does have pending prescription, patient given number to call and arrange for delivery, was doing this during end of visit. Clarified with Dr. Barrios's office discharge medications and prophlactic regimen, prescriptions called to [facility], communication sent to s/o for further assistance if needed. 3. Constipation patient using intermittent Mirlax and bowel program "detox" with RIFT treatment no concerns at this time. 4. Anxiety. This is multifactorial, is pleased counts improving, is verbalizing desire to continue with treatment regimens though with worsening needle phobia presents challenges to patient and staff. Patient in good mood today, tracking conversation and information better. Limited understanding of his disease and treatments, and understands the seriousness of his current situation.Will continue to develop rapport to assist with coordination of care and anticipatory guidance. 5. Advanced care planning. Patient does have a POLST with DNAR/DNI and selective treatments, if going to , though does not want to, would like this facilitated to have a at home if s/o able to be and or support this. Patient's current goals are to continue treatment and extend prognosis and "prove the doctors wrong" for giving up on him. Encouraged patient to continue with his EOL planing along with focusing on adherence to his treatment plan. Willing to continue to meet with [employer] WORK[employer] weekly for support. 45 minutes with review of records, labs, coordination of care; counseling for pain and symptom management and psychosocial support/anticipatory guidance.
== END 2021-05-26 09:36 | disposition home or self-care (01) ==
LOC: PC 09:35
PROVIDERS: ATTEND Nurse Practitioner Adult Health
DX: Z51.5 Encounter for palliative care (principal); G89.3 Neoplasm related pain (acute) (chronic); C91.02 Acute lymphoblastic leukemia, in relapse; K59.03 Drug induced constipation; T40.2X5A Adverse effect of other opioids, initial encounter; R53.1 Weakness; F41.9 Anxiety disorder, unspecified; F40.232 Fear of other medical care; Z79.899 Other long term (current) drug therapy; Z87.898 Personal history of other specified conditions; Z66 Do not resuscitate
CPT/HCPCS: 99215

== ENCOUNTER 2021-06-06 12:14 | Outpatient (CLI) | payer MEDICAID ==
--- NOTE | 2021-06-06 20:44 | CONSULTATION NOTE ---
Palliative Care Follow Up - Referral Referring Provider: Dr. Bee Sanford Time of Visit: 1115 45 minutes Referral setting: [facility] [place] Referral Reason: Pain of neoplastic origin/[employer]ER Lymphoma/ALL/Anxiety - Information Sources Records reviewed: Previous records reviewed History/Review of Systems obtained from: Patient Exam limitations: No limitations - History of Present Illness Update Brief HPI Update: This is a complicated 50-year-old gentleman with relapsed/refractory B-cell acute lymphoblastic leukemia, with [employer]ER relapse. Patient is continuing with his ponatinib, is to be receiving IT methotrexate, did miss his appointment yesterday. But has received 1 since last visit with me on 05/26/21. Patient still has some minor vision changes, reports headaches are improved and/are resolved, continues with multiple joint pain and discomfort, currently using oxycodone 10 mg up to 3 times daily, 1-2 tabs. Patient's labs continue to improve, his hemoglobin today was 9.1, WBC 1.8, last for 1% down from April 59%. He does continue with some weakness, activity intolerance, and shortness of breath. Patient remains quite committed to his [facility] integrative treatment platform, he does have a "guru" helping him maximize his program. This includes 2 times a week and 1 times a week the weekend. He has now added supplements and teas to his regimen, though he does present with weight loss from 1 85 to 1 77 today. Reports he does have some underlying nausea, reminded him to take his ondansetron at needed. Patient has high anxiety, needle phobia which makes blood draws and IT methotrexate very difficult for him. He continues to be committed to extending his quantity of life. Does not feel he is ready to though understands the seriousness of his illness. He has had difficulty remaining compliant with visits, and known substance abuse, though is reporting he has focusing more healthy lifestyle. Past Medical History: Patient's original diagnosis of AL L was 05/12. Known history of pericardial effusion, history of pneumonia P NEY, recent bacterial/fungal sinusitis, [employer]ER involvement, depression, anxiety, fatigue, history of MRSA, history of substance abuse. Social History - Living Situation Living arrangement: At home Living Situation: With spouse/s.o. Support System: Patient lives at home with his significant other Alek, She is assisting with his medications though has not been coming to his appointments. His sister, Karissa Renee who is his DPOA provides support. Medications/Allergies - Medications Home Medications: Ambulatory Orders Medication Instructions Recorded Confirmed Sulfamethox/Trimeth 800/160 1 each PO BID MDD Wednesday, Wednesday05/29/20 06/06/21 [Bactrim Ds 800/160] Tamsulosin HCl [Flomax] 0.4 mg PO DAILY 05/29/20 06/06/21 Acyclovir 800 mg PO BID 05/15/21 06/06/21 Fluconazole [Diflucan] 200 mg PO DAILY 05/15/21 06/06/21 Oxycodone HCl 10 - 20 mg PO Q4HR PRN MDD 6 tabs 05/15/21 06/06/21 Ponatinib HCl [Iclusig] 30 mg PO DAILY 05/15/21 06/06/21 Ursodiol [Shaq] 500 mg PO BID 05/15/21 06/06/21 allopurinoL [Allopurinol] 300 mg PO BID 05/15/21 06/06/21 levoFLOXacin [Levofloxacin] 750 mg PO DAILY MDD ANC <500 05/15/21 06/06/21 - Allergies Allergies/Adverse Reactions: Allergies Allergy/AdvReac Type Severity Reaction Status Date / Time albuterol Allergy Respiratory Verified 10/11/20 13:47 Review of Systems - Constitutional Constitutional: reports: Fatigue (improved), Weakness (improved), Weight loss (177). denies: Fever, Chills - Eyes Eyes: reports: Vision loss, Other (improved but not back to baseline; pressure resolved). denies: Dipolpia - Ears, Nose & Throat Ears, Nose & Throat: reports: Postnasal drainage. denies: Mouth lesions - Cardiovascular Cardiovascular: reports: Lightheadedness (improved), Exertional dyspnea, Decr. exercise tolerance. denies: Palpitations, Chest pain, Edema - Respiratory Respiratory: reports: SOB with exertion. denies: Cough, SOB at rest - Gastrointestinal Gastrointestinal: reports: Early satiety, Other (has added supplements and teas). denies: Abdominal pain, Constipation, Nausea, Reflux/heartburn - Genitourinary Genitourinary: reports: Frequency - Musculoskeletal Musculoskeletal: reports: Stiffness, Muscle weakness, Joint pain (bilateral knee and elbows) - Integumentary Integumentary: reports: Dryness. denies: Rash - Neurological Neurological: reports: General weakness, Memory problems. denies: Headache (improved) - Psychiatric Psychiatric: reports: Anxiety (needle phobia;) - Hematologic/Lymphatic Hematologic/Lymph: reports: Anemia (9.1 improving). denies: Recurrent infections (recent hospitalization in April; does not reports s/s currently) - All Other Systems All Other Systems: reports: Other (limited with recall) Physical Exam - Physical Exam General Appearance: positive: No acute distress, Alert, Anxious Eyes Bilateral: positive: Normal inspection, Other (no perceivable swelling or protrusion) ENT: positive: No signs of dehydration Neck: positive: Trachea midline Cardiovascular: positive: Regular rate & rhythm Respiratory: positive: No respiratory distress, Breath sounds nml Abdomen: positive: Non-tender, Soft Skin: positive: Pallor. negative: Jaundice Extremities: positive: No pedal edema Neurologic/Psychiatric: positive: Oriented x3, Mood/affect nml, Weakness Palliative Care - POLST Patient has POLST: Yes POLST Status: DNR, Selective Treatment Pain: Pain improved, Location (headaches mostly resolved; multiple joint pain knees/elbows; using oxycodone 1-2 tabs depending on activity up to TID) Tiredness/Fatigue: Moderate (4-6) Drowsiness/Sedation: None Nausea: Mild (1-3) Anorexia: Moderate (4-6), Weight loss Dyspnea: Moderate (4-6) Depression: Mild (1-3) Anxiety: Moderate (4-6) Feelings of wellbeing/Perceived Quality of Life: Good, Acceptable, Improved Sleep: Sleeps well, Sleep improved Constipation: Yes, Opoid induced, Managed, Comment (doing "detox" which includes laxatives with treatments;denies diarrhea) Performance Status: Patient continues to improve functionally, has not had any further chest pain with exertion. Does manage his ADLs, is driving. He is still somewhat sedentary and not back to his baseline, but is encouraged. Reports he can walk up to 100 feet now before needs to rest. - Palliative Care Discussion: Patient is very excited about his RIFT, he has had improving counts, is feeling better. He does know he needs to continue his ponatinib and his IT methotrexate. He missed his appointment yesterday, is quite forgetful and does not always have things out on his calendar. We did spend some time discussing the importance given his recurrent of disease and response to the IT methotrexate with resolution of the headaches and swelling, reminded patient that his commitment was to "not ", this is be an important part particularly for his quality of life to continue despite his anxiety and hardship regarding this emotionally. Patient continues to hope for the best, he does understand the seriousness of his illness but is feeling positive and participating in adding to his treatment regimen. He feels like everyone "has given up on him". Continue to encourage him to work on his end-of-life planning, to help with the best, but also given he has identified some important tasks to complete those. We will continue to build rapport given the seriousness of his illness. Results - Lab Results Lab results reviewed: Yes Lab and Imaging Results: Hemoglobin 9.1, hematocrit 27.1, WBCs 1.8, blasts 1%, ANC 1.0, BUN 28, creatinine 1.0 Impression and Recommendations - Palliative Care Impression: This is a 50-year-old gentleman with relapsed/refractory B-cell acute lymphoblastic leukemia with [employer] involvement. He is doing better with his pain, has diffuse multiple joint pain and discomfort, controlled with intermittent oxycodone. Patient remains engaged and hopeful, has been compliant with his sunitinib, has been encouraged to continue with his IT methotrexate appointments. Patient supplementing with his RYFT treatments, am concerned he is adding supplements given his prophylactic regimen including fluconazole. Palliative care continue to follow for symptom management, psychosocial support, anticipatory guidance and coordination of care. Recommendations/Counseling Done: 1. Pain of neoplastic origin. Patient's headache pain has improved, but has developed multiple joint pain and discomfort particularly in knees bilaterally and elbows. Denies any acute recurrence of gout pain. Patient using oxycodone intermittently, 10 mg 1-2 tabs up to 3 times a day. Patient is staying within guidelines, prescription provided. 2. Medication adherence. Patient is actually contacted [facility] for prescriptions, as/is feeling Mediset's. Patient reports is being compliant, most likely is in reflection of his numbers. Continue to encourage patient to be engaged and continue his ponatinib. Counseling provided regarding problem solving for compliance with appointments, reinforced need for follow through and support. Patient to get calendar, and enlist help of S/O and reminding him of appointments. 3. Anxiety. This is multifactorial, continuing to verbalize desire for doing both treatments, oncology as well as his RIFT. He does present with limited understanding of his disease and implications, but does understand the seriousness of his current situation and is hoping for a better prognosis. Continuing to develop rapport to assist with coordination of care and anticipatory guidance. 4. Advanced care planning. Patient does have a POLST with DNR/DNI and selective treatments, patient's goals are to continue treatment extend prognosis and "prove the doctors wrong". Does have perception they have "given up on him". Patient has limited his choices secondary to his compliance with both treatments and appointments. Palliative care continuing to focus on quality of life issues and provide psychosocial support, for coordination of care in the context of limited prognosis. 45 minutes review of labs, coordination of care with oncology team, [id number] with patient for counseling for pain and symptom management and psychosocial support, anticipatory guidance
== END 2021-06-06 12:15 | disposition home or self-care (01) ==
LOC: PC 12:14
PROVIDERS: ATTEND Nurse Practitioner Adult Health
DX: Z51.5 Encounter for palliative care (principal); G89.3 Neoplasm related pain (acute) (chronic); C91.02 Acute lymphoblastic leukemia, in relapse; R51.9 Headache, unspecified; M25.562 Pain in left knee; M25.561 Pain in right knee; M25.522 Pain in left elbow; M25.521 Pain in right elbow; F41.9 Anxiety disorder, unspecified; Z66 Do not resuscitate
CPT/HCPCS: 99215

== ENCOUNTER 2021-06-13 10:15 | Outpatient (CLI) | payer MEDICAID ==
--- NOTE | 2021-06-13 17:52 | CONSULTATION NOTE ---
Palliative Care Follow Up - Referral Referring Provider: Dr. 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 Patient is continuing with his ponatinib, is to be receiving IT methotrexate, did miss his last 2 appointments. Patient has had still some residual minor vision changes, denies further headaches, does present with some swelling around his eyes, unclear if this is related to his previous issues. Patient does not notice any pressure at this time.When discussed further about his IT methotrexate, patient does have severe phobia of needles, it is quite complicated for him to get blood draws and provides extreme anxiety for him. Patient does have many histories of anxiety related issues including agoraphobia, and has often been incapacitated. We did discuss the importance of him following through on this, educated regarding his FASHION CONSULTANT relapse, he is worried they will not let him come back, agreed that I could call and make arrangements for appointment, at this point in time he has made a commitment to follow through. He does need frequent reminders, and gets quite scattered at times. Patient presents today with pain of 6 out of 10, this is mostly related to joint pain, and his elbows, ankles, knees, and some upper thoracic discomfort. He has had some persistent tiredness, but has not needed any recent transfusions. Remains very upbeat, as it is continuing his RIFT radiofrequency treatment platform, and has added supplements. Requested again he bring those and to make sure they are not interfering with any of his medications.Reports he is following organic diet, and has maintained his weight this last couple weeks.He reports he still has intermittent nausea, but is controlled with the ondansetron. Social History - Living Situation Living arrangement: At home Living Situation: With spouse/s.o. Support System: Patient's original diagnosis of AL L was 05/12. At that time known history of pericardial effusion history, of pneumonia P NEY, recent hospitalization of bacterial/fungal sinusitis, new FASHION CONSULTANT involvement, longstanding depression, anxiety, fatigue, history of MRSA, history of substance abuse Medications/Allergies - Medications Home Medications: Ambulatory Orders Medication Instructions Recorded Confirmed Sulfamethox/Trimeth 800/160 1 each PO BID MDD Wednesday, Wednesday05/29/20 06/09/21 [Bactrim Ds 800/160] Tamsulosin HCl [Flomax] 0.4 mg PO DAILY 05/29/20 06/09/21 Acyclovir 800 mg PO BID 05/15/21 06/09/21 Fluconazole [Diflucan] 200 mg PO DAILY 05/15/21 06/09/21 Oxycodone HCl 10 - 20 mg PO Q4HR PRN MDD 6 tabs 05/15/21 06/09/21 Ponatinib HCl [Iclusig] 30 mg PO DAILY 05/15/21 06/09/21 Ursodiol [Shaq] 500 mg PO BID 05/15/21 06/09/21 allopurinoL [Allopurinol] 300 mg PO BID 05/15/21 06/09/21 levoFLOXacin [Levofloxacin] 750 mg PO DAILY MDD ANC <500 05/15/21 06/09/21 - Allergies Allergies/Adverse Reactions: Allergies Allergy/AdvReac Type Severity Reaction Status Date / Time albuterol Allergy Respiratory Verified 10/11/20 13:47 Review of Systems - Constitutional Constitutional: reports: Fatigue (improved), Weakness (improved), Weight loss (177). denies: Fever, Chills - Eyes Eyes: reports: Vision loss, Other (improved but not back to baseline; still difficulty with reading). denies: Dipolpia - Ears, Nose & Throat Ears, Nose & Throat: reports: Postnasal drainage. denies: Mouth lesions - Cardiovascular Cardiovascular: reports: Lightheadedness (improved), Exertional dyspnea, Decr. exercise tolerance. denies: Palpitations, Chest pain, Edema - Respiratory Respiratory: reports: SOB with exertion. denies: Cough, SOB at rest - Gastrointestinal Gastrointestinal: reports: Early satiety, Other (has added supplements and teas). denies: Abdominal pain, Constipation, Nausea, Reflux/heartburn - Genitourinary Genitourinary: reports: Frequency - Musculoskeletal Musculoskeletal: reports: Stiffness, Muscle weakness, Joint pain (bilateral knee and elbows, ankles and neck area) - Integumentary Integumentary: reports: Dryness. denies: Rash - Neurological Neurological: reports: General weakness, Memory problems. denies: Headache (improved) - Psychiatric Psychiatric: reports: Anxiety (needle phobia; severe at baseline; long history) - Hematologic/Lymphatic Hematologic/Lymph: reports: Anemia (9.1 improving). denies: Recurrent infections (recent hospitalization in April; does not reports s/s currently) - All Other Systems All Other Systems: reports: Other (limited with recall) Physical Exam - Vital Signs Pulse Rate: 88 Respiratory Rate: 18 Blood Pressure: 126/76 - Physical Exam General Appearance: positive: No acute distress, Alert, Anxious Eyes Bilateral: positive: Normal inspection, Other (mild periorbital edema today; reports was up late last night) ENT: positive: No signs of dehydration Neck: positive: Trachea midline Cardiovascular: positive: Regular rate & rhythm Respiratory: positive: No respiratory distress, Breath sounds nml Abdomen: positive: Non-tender, Soft Skin: positive: Pallor. negative: Jaundice Extremities: positive: No pedal edema Neurologic/Psychiatric: positive: Oriented x3, Mood/affect nml, Weakness Palliative Care - POLST Patient has POLST: Yes POLST Status: DNR, Selective Treatment Pain: Pain improved, Location (headache resolved; now multiple joint pain;), Severity (10/31), Comment (using oxycodone 10 mg 3-4x a day) Tiredness/Fatigue: Moderate (4-6) Drowsiness/Sedation: Mild (1-3) Nausea: Moderate (4-6) Anorexia: Mild (1-3), Moderate (4-6) Dyspnea: Mild (1-3) Depression: Mild (1-3) Anxiety: Mild (1-3) Feelings of wellbeing/Perceived Quality of Life: Good, Acceptable, Improved Sleep: Sleeps well Constipation: No Performance Status: Patient reports activity tolerance continues to improve, though still is limiting. Patient is able to manage his ADLs, is trying to get back to his projects. - Palliative Care Discussion: Patient remains very distressed that oncologist was ready to send him to hospice and give up on him. We did discuss in the context of his current disease, it is a terminal diagnosis. Did recommend continue with oncologist, that most of the "formulas" are similar, he could certainly get a second opinion but is important to remain dedicated his treatment. We discussed at length treatment for his FASHION CONSULTANT relapse, he wants to only do it every 2 weeks, just feels too overwhelmed. Has missed 2 of his last appointments, did speak with [facility] nurse, about pending appointment on 06/19. Will encourage patient to attend, patient symptoms are improving, and is doing well on his counts as far as his ponatinib. Patient reminded that continue to hope for the best, but still needs to address his end-of-life planning issues. This is very difficult for him. His son though is coming to visit next week, and he is looking forward to this.We will continue to work with patient on his priorities and end-of-life goals.Patient does have a POLST with DN AR/DNI and selective treatments. 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 He is doing better with his FASHION CONSULTANT symptoms, but has persistent diffuse multiple joint pain and discomfort, currently controlled. Patient remains engaged and hopeful, has been compliant with his ponatinib. Encouraged to continue with his IT methotrexate ignacio ointments. Patient is supplementing with his integrative treatments with an addition of supplements. Palliative care continue to follow for symptom management, psychosocial support, and anticipatory guidance and coordination of care Recommendations/Counseling Done: 1. Pain of neoplastic origin. Patient's headache pain has resolved but has developed multiple joint pain and discomfort knees, ankles, and elbows as well as some neck pain. Denies any acute recurrence of gout pain. Patient is using oxycodone 10 mg 1-2 tabs up to 3-4 times a day. Patient is staying within guidelines. 2. FASHION CONSULTANT relapse. Discussed at length barriers for patient to attending his appointments for LP. Reinforced education of importance, particularly in his commitment to want to have extended quality and quantity of life. Did speak with Elaina at [facility], does have pending appointment 06/19. Will encourage patient to continue to go, communicated this with him as he does have difficulty reading the phone and needs frequent reminders about appointments. Patient has underlying anxiety around needles and this just feels overwhelming to him. 3. AL L. Counts of remained improved, has not needed any transfusions recently. We will send lab results to [facility] for their records. They will draw labs next , most likely does not need labs on Wednesday. They are talking about decreasing to 1 time a week which would be appropriate. Given patient's underlying anxiety and distress with blood draws. 5. Medication adherence. Patient actually contacting [facility] for prescriptions, is using Mediset's. Have not been in contact with his S/O but reports that they are managing. Reviewed my concern with the addition of supplements, that we check for interactions. Requested patient bring in list to review. 6. Advanced care planning. Patient does have POLST with DNR/DNI and selective treatments his goals are to continue treatment to extend his prognosis and "prove the doctors wrong". Continues with the perception they have "given up on him". Patient has limited his choices secondary to his compliance with both treatments, appointments, and history of substance abuse. Palliative care continue to focus on quality of life issues, provide psychosocial support for coordination of care in the context of limited prognosis. 45 minutes with review of labs, coordination of care with oncology team, [id number] with patient for counseling for pain and symptom management and psychosocial support, anticipatory guidance
== END 2021-06-13 10:16 | disposition home or self-care (01) ==
LOC: PC 10:15
PROVIDERS: ATTEND Nurse Practitioner Adult Health
DX: Z51.5 Encounter for palliative care (principal); G89.3 Neoplasm related pain (acute) (chronic); C91.Z2 Other lymphoid leukemia, in relapse; F41.9 Anxiety disorder, unspecified; Z66 Do not resuscitate; D64.9 Anemia, unspecified
CPT/HCPCS: 99215

== ENCOUNTER 2021-06-27 10:33 | Outpatient (CLI) | payer MEDICAID | END 2021-06-27 10:34 | disposition home or self-care (01) | LOC: PC 10:33 | PROVIDERS: ATTEND Nurse Practitioner Adult Health | DX: Z53.9 Procedure and treatment not carried out, unspecified reason (principal) ==

== ENCOUNTER 2021-07-18 10:45 | Outpatient (CLI) | payer MEDICAID ==
--- NOTE | 2021-07-18 12:04 | CONSULTATION NOTE ---
Palliative Care Follow Up - Referral Referring Provider: Dr. 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 He is continuing with his ponatinib, is receiving IT methotrexate, has been compliant with going to his appointments every other week. His LITIGATION SPECIALIST symptoms have resolved, denies any pressure or increased pain. He does have significant fears regarding needles, and needs lorazepam to tolerate, so has poor recall of what happens at appointments. Patient's counts continue to improve, he is here for blood draw, his WBCs are back into normal range 5.4, platelets 280, neutrophils 2.8, and hemoglobin 11.9. Did consult with his oncologist Dr. Quesada, to consider deprescribing current Prophylactic antibiotics. Patient continues to be complia nt with his medications, he is doing his integrated treatments RIF T, radiofrequency, and his supplements. Reports he does these treatments every 2 to 3 days, his strength is continue to improve, shortness of breath has resolved, and anxiety well controlled. Patient continues with multiple joint discomfort, but is able to manage on his oxycodone twice daily to 3 times daily at the most. He does have persistent nausea, and has been controlled with ondansetron. Past Medical History: Patient's original diagnosis of AL L was 05/12, at that time had known pericardial effusion, history of P NEY, most recent hospitalization was for bacterial/fungal sinusitis, LITIGATION SPECIALIST relapse, he does have longstanding depression, anxiety, history of MRSA, history of substance abuse Social History - Living Situation Living arrangement: At home Living Situation: With spouse/s.o. Support System: Patient lives in his "compound" with his girlfriend Alek, his son who is 27, is visiting nearby, his mother still alive at 91. He is well supported by his sister who checks in every 2 to 3 days.He is currently retired, but still has multiple projects going on Medications/Allergies - Medications Home Medications: Ambulatory Orders Medication Instructions Recorded Confirmed Tamsulosin HCl [Flomax] 0.4 mg PO DAILY 05/29/20 07/18/21 Oxycodone HCl 10 - 20 mg PO Q4HR PRN MDD 6 tabs 05/15/21 07/18/21 Ursodiol [Shaq] 500 mg PO BID 05/15/21 07/18/21 Ponatinib HCl [Iclusig] 30 mg PO DAILY 07/18/21 07/18/21 - Allergies Allergies/Adverse Reactions: Allergies Allergy/AdvReac Type Severity Reaction Status Date / Time albuterol Allergy Respiratory Verified 10/11/20 13:47 Review of Systems - Constitutional Constitutional: reports: Weight stable (178). denies: Fever, Chills - Eyes Eyes: reports: Vision loss, Other (improved but not back to baseline; still difficulty with reading). denies: Dipolpia - Ears, Nose & Throat Ears, Nose & Throat: reports: Postnasal drainage. denies: Mouth lesions - Cardiovascular Cardiovascular: reports: Exertional dyspnea, Decr. exercise tolerance (able to amb 100 yards currently). denies: Palpitations, Chest pain, Edema - Respiratory Respiratory: reports: SOB with exertion. denies: Cough, SOB at rest - Gastrointestinal Gastrointestinal: reports: Nausea (persistent; controlled with ondansetron), Early satiety, Other (has added supplements and teas). denies: Abdominal pain, Constipation, Reflux/heartburn - Genitourinary Genitourinary: reports: Frequency - Musculoskeletal Musculoskeletal: reports: Stiffness, Muscle weakness, Joint pain (bilateral knee and elbows, ankles and neck area) - Integumentary Integumentary: reports: Dryness. denies: Rash - Neurological Neurological: reports: General weakness. 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 denies: Recurrent infections (recent hospitalization in April; does not reports s/s currently) - All Other Systems All Other Systems: reports: Reviewed and negative Physical Exam - Vital Signs Pulse Rate: 90 Respiratory Rate: 18 O2 Saturation: 99 Blood Pressure: 135/84 - Physical Exam General Appearance: positive: No acute distress, Alert, Anxious (related to blood draw) Eyes Bilateral: positive: Normal inspection, Other (mild periorbital edema today; reports was up late last night) ENT: positive: No signs of dehydration Neck: positive: Trachea midline Cardiovascular: positive: Regular rate & rhythm Respiratory: positive: No respiratory distress, Breath sounds nml Abdomen: positive: Non-tender, Soft Skin: positive: Pallor. negative: Jaundice Extremities: positive: No pedal edema Neurologic/Psychiatric: positive: Oriented x3, Mood/affect nml Palliative Care - POLST Patient has POLST: Yes POLST Status: DNR, Selective Treatment Pain: Pain unchanged, Location (multiple joints), Severity (4/10), Comment (using oxycodone 10 mg 2-3 x a day) Tiredness/Fatigue: Moderate (4-6) Drowsiness/Sedation: Moderate (4-6) Nausea: Moderate (4-6) Anorexia: Moderate (4-6) Dyspnea: Moderate (4-6) Depression: Mild (1-3) Anxiety: Mild (1-3) Feelings of wellbeing/Perceived Quality of Life: Good, Acceptable, Improved Sleep: Sleeps well Constipation: No Performance Status: Patient continues to improve functionally, with increased tolerance, less dyspnea. He is working again out on his heavy equipment. He is able to manage his ADLs and drive. - Palliative Care Discussion: Patient continues to be grateful for every day, wants to "prove the doctors wrong". He is somewhat distracted with ongoing changes in the political system today. He is working on a survival residential, has had more energy to be able to work on his big equipment. His son has been up visiting, has very much enjoyed this visit. He is with less anxiety, and excited about the improvements in his blood counts. Results - Lab Results Lab results reviewed: Yes Impression and Recommendations - Palliative Care Impression: This is an anxious 50-year-old gentleman with relapsed/refractory B-cell acute lymphoblastic leukemia with LITIGATION SPECIALIST involvement. His LITIGATION SPECIALIST symptoms have resolved, continues with persistent diffuse multiple joint pain and discomfort, currently controlled on current regimen. Patient's counts continue to improve, has been compliant with his medications. Has continued with his IT methotrexate appointments though finds is quite high anxiety producing. He also supplementing with his integrative treatments. Palliative care continue to follow for symptom management, psychosocial support and anticipatory guidance and coordination of care Recommendations/Counseling Done: 1. AL L. Counts continue to remain improved, has not needed any transfusions for couple months now. Patient's white count and ANC are within normal range. Consult with the oncologist, can stop his prophylactic antibiotics. Patient is very much excited. Suspect they are adding to his nausea. Patient encouraged to continue remain compliant with his treatment. 2. LITIGATION SPECIALIST relapse. Patient has continued with attending his appointments for his LP IT methotrexate. He has a pending 1 for 3/ and is expecting to keep this. Patient continues with severe underlying anxiety around needles, but has been doing well with complying with schedule. 3. Pain of neoplastic origin. Patient's headache pain is resolved, continues with multiple joint pain and discomfort of knees, ankles elbows and neck pain. Denies any recent acute gout pain. Patient is using oxycodone 1-2 tabs up to 3 times a day, patient is staying within his limitations. 4. Medication adherence. Patient has been compliant regarding prescriptions, is using Mediset's. His SIO has been setting them up. Reviewed decreasing number of meds needed, given list. Patient is excited to have less medications. 5. Advanced care planning. Patient does have POLST with DNR/DNI and selective treatments, his goals are to continue to treat to extend his prognosis to improve the doctors wrong. He continues feeling positive and grateful for the time he has been given. Palliative care continue to focus on quality of life issues, providing psychosocial support for coordination of care in the context of his limited prognosis and building of rapport 60 minutes Review of labs, counseling for symptom management, psychosocial support, coordination of care with oncology regarding medication management, continued building of rapport in the context of his prognosis.
== END 2021-07-18 10:46 | disposition home or self-care (01) ==
LOC: PC 10:45
PROVIDERS: ATTEND Nurse Practitioner Adult Health
DX: Z51.5 Encounter for palliative care (principal); C91.00 Acute lymphoblastic leukemia not having achieved remission; C91.01 Acute lymphoblastic leukemia, in remission; G89.3 Neoplasm related pain (acute) (chronic); C41.9 Malignant neoplasm of bone and articular cartilage, unspecified; Z66 Do not resuscitate
CPT/HCPCS: 99350

== ENCOUNTER 2021-08-01 10:00 | Outpatient (CLI) | payer MEDICAID ==
--- NOTE | 2021-08-01 14:10 | CONSULTATION NOTE ---
Palliative Care Follow Up - Referral Referring Provider: Dr. 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 He is also been receiving his IT methotrexate and compliant with going to his appointments every other week. He has been feeling good, his counts will continue to recover, he has not had any further weight loss.He continues to integrate his alternative treatment of RIFT about 2 times a week, reports day after he does feel little bit fatigue. He is currently off his prophylactic a ntibiotics because of improved labs. Patient does continue with multiple joint discomfort, but is able to manage on his oxycodone 1-2 times a daily, nausea has been improved off of his antibiotics.Patient remains quite hopeful, he reports "I love living" but does understand he has by jenn still continued beyond his prognosis. He denies depression, and his anxiety is improving. 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 Support System: Patient remains quite pleased with his current relationship with [facility], they are looking at getting , has been a really good support for him. 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 Currently he is working on making a "[employer]", this is been a big project for him and keeping him motivated. Medications/Allergies - Medications Home Medications: Ambulatory Orders Medication Instructions Recorded Confirmed Tamsulosin HCl [Flomax] 0.4 mg PO DAILY 05/29/20 08/01/21 Oxycodone HCl 10 - 20 mg PO Q4HR PRN MDD 6 tabs 05/15/21 08/01/21 Ursodiol [Shaq] 500 mg PO BID 05/15/21 08/01/21 Ponatinib HCl [Iclusig] 30 mg PO DAILY 07/18/21 08/01/21 - Allergies Allergies/Adverse Reactions: Allergies Allergy/AdvReac Type Severity Reaction Status Date / Time albuterol Allergy Respiratory Verified 10/11/20 13:47 Review of Systems - Constitutional Constitutional: reports: Weight stable (181). denies: Fever, Chills - Eyes Eyes: reports: Vision loss, Other (improved but not back to baseline; still difficulty with reading). denies: Dipolpia - Ears, Nose & Throat Ears, Nose & Throat: reports: Postnasal drainage. denies: Mouth lesions - Cardiovascular Cardiovascular: reports: Exertional dyspnea, Decr. exercise tolerance (able to amb 100 yards currently). denies: Palpitations, Chest pain, Edema - Respiratory Respiratory: reports: SOB with exertion. denies: Cough, SOB at rest - Gastrointestinal Gastrointestinal: reports: Early satiety. denies: Abdominal pain, Constipation, Nausea (improved), Reflux/heartburn - Genitourinary Genitourinary: reports: Frequency - Musculoskeletal Musculoskeletal: reports: Stiffness, Muscle weakness, Joint pain (bilateral knee and elbows, ankles and neck area) - Integumentary Integumentary: reports: Dryness. denies: Rash - Neurological Neurological: reports: General weakness. 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 denies: Recurrent infections (recent hospitalization in April; does not reports s/s currently) - All Other Systems All Other Systems: reports: Reviewed and negative Physical Exam - Vital Signs Pulse Rate: 100 Respiratory Rate: 16 Blood Pressure: 127/90 - Physical Exam General Appearance: positive: No acute distress, Alert, Anxious (related to bl ood draw) Eyes Bilateral: positive: Normal inspection ENT: positive: No signs of dehydration Neck: positive: Trachea midline Cardiovascular: positive: Regular rate & rhythm, Tachycardia Respiratory: positive: No respiratory distress Abdomen: positive: Non-tender, Soft Skin: positive: Dryness. negative: Jaundice Extremities: positive: No pedal edema Neurologic/Psychiatric: positive: Oriented x3, Mood/affect nml Palliative Care - POLST Patient has POLST: Yes POLST Status: DNR, Selective Treatment Pain: Pain unchanged, Location (multiple joints; intermittent oxycodone 1-2 x day) Feelings of wellbeing/Perceived Quality of Life: Good, Acceptable, Improved Sleep: Sleeps well Constipation: No Performance Status: Patient continues to improve with his activity tolerance, is able to manage his own ADLs. - Palliative Care Discussion: Patient continues to be grateful for his extended quality and quantity of life. He is not need a transfusion for quite a while now. He is off medications and feeling better off the nausea. He continues to integrate his RIF T treatments, is feeling positive overall. He does understand the seriousness of his illness, he reports he "is man walking" he also reports "I love living". He is very much in love with his current partner and is hoping for as much time as possible. 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 His SPRING REPAIRER HELPER HAND symptoms have resolved, continues with persistent multiple joint pain or discomfort currently controlled on regimen. Patient's counts continue to improve and has been compliant with his medications. He continues with his IT methotrexate appointments though finds these high anxiety producing, he has nausea is improved off of his antibiotics. He is supplementing his treatment with integrative treatments. Palliative care continue to follow for symptom management, psychosocial support and anticipatory guidance with coordination of care Recommendations/Counseling Done: 1. AL L. Patient's counts continue to improve, is not needing transfusions for couple months. His ANC and white count are normal range. He reports he does have an ingrown toenail, recommended he go to straw hat plunger operator to have it removed. At this point in time he is choosing not to, discussed again his risk for infection, will reach out if needs a referral. Patient continued to remain compliant with his treatment, reinforcement given. 2. 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 Patient is continue with attending his appointments for his LP IT methotrexate, he continues have severe underlying anxiety around this, but is complying with schedule. 3. Pain of neoplastic origin. Patient's headache pain is resolved, continues with multiple joint pain and discomfort of knees, ankles, elbows and neck pain most likely related to side effects of his TKI. He denies any recent acute gout pain. Patient is using oxycodone 1-2 tabs up to 3 times a day and staying within his limitations. 4. Medication adherence patient has been compliant with prescribed medications, using Mediset's. His S/O has been setting them up. Patient is excited but having less medications but has reordered his ponatinib. 5. Advanced care planning. Patient does have POLST with DNR/DNI and selective treatments, his goals are continue to treatment to extend both his prognosis to improve his quality of life. He wants to "prove the doctors wrong" though he d oes have some understanding in the seriousness of his illness and continues to want to live each day fully. He is feeling positive and grateful for the time he is given. Palliative care continue to focus on quality of life issues, providing psychosocial support for coordination of care in the context of his limited prognosis and building of rapport 45 minutes with review of chart, oncology note, coordination of care with oncologist, [id number] with patient for symptom management, review of medications and adherence, and symptom management as well as anticipatory guidance
== END 2021-08-01 10:01 | disposition home or self-care (01) ==
LOC: PC 10:00
PROVIDERS: ATTEND Nurse Practitioner Adult Health
DX: Z51.5 Encounter for palliative care (principal); G89.3 Neoplasm related pain (acute) (chronic); C91.00 Acute lymphoblastic leukemia not having achieved remission; F41.9 Anxiety disorder, unspecified; Z66 Do not resuscitate
CPT/HCPCS: 99215

== ENCOUNTER 2021-11-28 16:22 | Emergency (ER) | payer MEDICAID ==
--- OUTSIDE RECORDS SUMMARY | 2021-11-28 16:48 | EXTERNAL MEDICAL SUMMARY RPT | Continuity of Care Document ---
:1970 Author Organization [facility] Address [address] [place] [address] Phone Allergies No information. Encounters No information. Functional Status No information. Immunizations No information. Medications date description facility +0000 ondansetron hcl [facility] [place] [phone] ondansetron hcl [facility] [place] [phone] tamsulosin [facility] [place] [phone] tamsulosin [facility] [place] Problems No information. Procedures No information. Results/Labs No information. Social History date description facility +0000 Former smoker [facility] [place] Vital Signs No information.
[2021-11-28 17:08] LABS: EOSINOPHILS % (AUTO) 0.6 %; HCT - HEMATOCRIT 21.9 % (42.0-52.0); HGB - HEMOGLOBIN 7.1 g/dL (14.0-18.0); LYMPHOCYTES % (AUTO) 44.7 %; MEAN CORPUSCULAR HEMOGLOBIN 29.5 pg (27.0-31.0); MEAN CORPUSCULAR HGB CONC 32.4 g/dL (32.0-36.0); MEAN CORPUSCULAR VOLUME 90.9 fL (80.0-94.0); MONOCYTES % (AUTO) 49.2 %; NEUTROPHILS % (AUTO) 4.3 %; RED BLOOD COUNT 2.41 10^6/uL (4.70-6.10); RED CELL DISTRIBUTION WIDTH 18.1 % (12.0-15.0); WHITE BLOOD COUNT 8.6 x10^3/uL (4.8-10.8)
[2021-11-28 17:12] LABS: PLT - PLATELET COUNT 7 10^3/uL (130-450); SLIDE REVIEW? Indicated
[2021-11-28 17:19] LABS: ALBUMIN/GLOBULIN RATIO 1.4 (1.0-2.2); BILIRUBIN,TOTAL 0.5 mg/dL (0.2-1.0); CALCIUM 9.3 mg/dL (8.5-10.3); CREATININE 1.1 mg/dL (0.6-1.2); TOTAL PROTEIN 6.8 g/dL (6.7-8.2)
[2021-11-28 17:43] LABS: PLATELET ESTIMATE, MANUAL DECREASED (<130,000) (NORMAL); PLATELET MORPHOLOGY NORMAL APP (NORMAL); WBC MORPHOLOGY (MULTIPLE) NORMAL APP (NORMAL)
[2021-11-28 17:46] LABS: DIFFERENTIAL COMMENT MANUAL DIFFERENTIAL
[2021-11-28] MEDS ORDERED: HYDROmorphone 1 MG/ML CARPUJECT IVP STA (17:48)
--- NOTE | 2021-11-28 17:54 | ED Physician Documentation ---
History of Present Illness - Stated complaint Stated Complaint: WEAK,LETHARGIC - Chief complaint Chief Complaint: General - History obtained from History obtained from: Patient - Additonal information Additional information: 50-year-old gentleman with AL L. Looking at the previous oncology notes he is basically incurable, and progressing and further therapy is not likely to help. That said he has been dismissive of this opinion from the oncologist's. Regardless he presents with 2 complaints. One is generalized weakness and shortness of breath that he thinks is related to symptomatic anemia and he has left rib pain after popping it a few days ago. It is severe. He is not having any bleeding from anywhere. No fevers. Review of Systems Constitutional: reports: Fatigue. denies: Fever, Chills Cardiac: denies: Chest pain / pressure, Palpitations Respiratory: denies: Dyspnea, Cough PD PAST MEDICAL HISTORY - Past Medical History Cardiovascular: None Respiratory: None Neuro: None Endocrine/Autoimmune: Other (ALL) Psych: Depression, Anxiety - Past Surgical History Past Surgical History: No - Present Medications Home Medications: Ambulatory Orders Medication Instructions Recorded Confirmed Tamsulosin HCl [Flomax] 0.4 mg PO DAILY 05/29/20 11/21/21 Ursodiol [Shaq] 500 mg PO BID 05/15/21 11/21/21 Ponatinib HCl [Iclusig] 30 mg PO DAILY 07/18/21 11/21/21 allopurinoL [Zyloprim] 100 mg PO DAILY 10/24/21 11/21/21 - Allergies Allergies/Adverse Reactions: Allergies Allergy/AdvReac Type Severity Reaction Status Date / Time albuterol Allergy Respiratory Verified 11/21/21 12:44 - Social History Does the pt smoke?: No Smoking Status: Never smoker Does the pt drink ETOH?: Yes Does the pt have substance abuse?: No - Immunizations Immunizations are current?: No - POLST Patient has POLST: Yes PD ED PE NORMAL - Vitals Vital signs reviewed: Yes - General General: Alert and oriented X 3, No acute distress - HEENT HEENT: PERRL, EOMI - Neck Neck: Supple, no meningeal sign, No bony TTP - Cardiac Cardiac: RRR, No murmur, Other (Mild left-sided mid rib tenderness, clear lungs.) - Respiratory Respiratory: No respiratory distress, Clear bilaterally - Abdomen Abdomen: Normal bowel sounds, Soft, Non tender - Back Back: No CVA TTP, No spinal TTP - Derm Derm: Normal color, Warm and dry, Other (He does have petechia and purpura) - Extremities Extremities: No edema, No calf tenderness / cord - Neuro Neuro: Alert and oriented X 3, Normal speech Results - Vitals Vitals: Vital Signs - 24 hr 11/28/21 11/28/21 11/28/21 16:36 19:08 19:17 Temperature 36.7 C 36.5 C Heart Rate 90 79 Heart Rate [ 86 Radial] Respiratory 18 18 16 Rate Blood Pressure 146/81 H 152/74 H Blood Pressure 137/76 H [Left Brachial artery] O2 Saturation 100 96 98 11/28/21 11/28/21 11/28/21 19:30 19:33 19:48 Temperature 36.2 C L 36.2 C L 36.2 C L Heart Rate Heart Rate [ 77 74 69 Radial] Respiratory 18 18 18 Rate Blood Pressure Blood Pressure 146/73 H 152/74 H 149/89 H [Left Brachial artery] O2 Saturation 97 99 99 11/28/21 11/28/21 11/28/21 20:18 20:26 20:48 Temperature 36.3 C L 36.2 C L Heart Rate 66 Heart Rate [ 77 83 Radial] Respiratory 18 18 18 Rate Blood Pressure 149/89 H Blood Pressure 146/73 H 144/84 H [Left Brachial artery] O2 Saturation 100 98 98 Oxygen O2 Source Room air - Labs Labs: Laboratory Tests 11/28/21 11/28/21 11/28/21 16:56 16:56 16:56 WBC 8.6 RBC 2.41 L Hgb 7.1 L Hct 21.9 L MCV 90.9 MCH 29.5 MCHC 32.4 RDW 18.1 H Plt Count 7 L* Neut # (Auto) Not Reportable Lymph # (Auto) Not Reportable Cuming # (Auto) Not Reportable Eos # (Auto) Not Reportable Baso # (Auto) Not Reportable Absolute Nucleated RBC Not Reportable Band Neuts % (Manual) Not Reportable Abnorm Lymph % (Manual) Not Reportable 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 Nucleated RBC % Not Reportable Neutrophils # (Manual) Not Reportable Lymphocytes # (Manual) Not Reportable Monocytes # (Manual) Not Reportable Eosinophils # (Manual) Not Reportable Basophils # (Manual) Not Reportable Differential Comment MANUAL DIFFERENTIAL Manual Slide Review Indicated WBC Morphology NORMAL JEANMARIE Platelet Estimate DECREASED (<130,000) Platelet Morphology NORMAL JEANMARIE RBC Morph Micro Appear 2+ ANISOCYTOSIS Sodium 137 Potassium 4.0 Chloride 104 Carbon Dioxide 23 Anion Gap 10.0 BUN 21 H Creatinine 1.1 Estimated GFR (MDRD) 71 L Glucose 115 H Calcium 9.3 Total Bilirubin 0.5 AST 20 ALT 21 Alkaline Phosphatase 75 Total Protein 6.8 Albumin 4.0 Globulin 2.8 Albumin/Globulin Ratio 1.4 Blood Type A POSITIVE Antibody Screen NEGATIVE Crossmatch IS Only See Detail PD MEDICAL DECISION MAKING - ED course ED course: 50-year-old gentleman presents with symptomatic anemia and looking at the [facility] notes they recommend transfusion if hemoglobin less than 8 so he is crossmatched for 1 unit. He also has rib pain which we will x-ray and manage his pain. He does fit transfusion parameters for platelets, but we do not have platelets in stock. I spoke with Ruth in the blood bank and I will go ahead and order the platelets so they are available for his [facility] clinic appointment which is Wednesday or Wednesday. I emailed the [facility] clinical laboratory service teacher to let her know of this. We did an x-ray of his chest given the rib pain. No rib fracture was seen but the radiologist was concerned that he might have a hemothorax. This is of course especially concerning given his platelet count of 7000. A CT was done showing: IMPRESSION: 1. Abnormal masslike soft tissue thickening in the chest wall centered along the left third rib laterally. The findings are suspicious for an infiltrative neoplasm in the chest wall but is incompletely characterized in the absence of intravenous contrast. Further evaluation may obtained with a contrast-enhanced MRI. 2. Indistinct lucency within the adjacent third rib without bony destruction. The findings likely represent reactive changes secondary to the mass. 3. Nonspecific right upper lobe 0.4 cm pulmonary nodule. Follow-up evaluation may be obtained in 6 months to demonstrate stability if clinically indicated. 4. Distention of the gallbladder without calcified gallstones or wall thicke demario. If there is clinical suspicion for cholecystitis, further evaluation may be obtained with ultrasound. This was discussed with the patient and he has follow-up with his oncologist in a few days and discussion of this was also advised. He has a prescription for pain medicine waiting for him from palliative care at [facility] tomorrow but needed some for night and was given 4 prepack Percocet to go. Departure - Departure Disposition: Home, Self Care Clinical Impression: ALL (acute lymphoblastic leukemia) Qualifiers: Leukemia Active/Remission status: without remission Qualified Code(s): C91.00 - Acute lymphoblastic leukemia not having achieved remission Contusion of rib on left side Qualifiers: Encounter type: initial encounter Qualified Code(s): S20.212A - Contusion of left front wall of thorax, initial encounter Condition: Good Record reviewed to determine appropriate education?: Yes Instructions: ED Contusion Soft Tissue Comments: Barry you were seen today for fatigue, this is related to your anemia from your cancer. He did receive 1 unit of blood today. He also had the rib injury on the left, we did not see a rib fracture but the radiologist noted some swelling on that side and we did a CAT scan showing a mass along the left third rib. Unclear to me if this is a manifestation of your leukemia or potentially some other cancer frankly. You should discuss this when you see your oncologist on Wednesday, they should also have platelets ready for you at that time. Return if worsening.
--- NOTE | 2021-11-28 19:12 | XRAY Report ---
PROCEDURE: Ribs w/PA Chest LT INDICATIONS: Rib injury TECHNIQUE: 3 views of the left ribs were acquired, along with a single view chest. COMPARISON: Chest x-ray 2view, 09/10. FINDINGS: Surgical changes and devices: None. Bones and chest wall: No fractures or dislocations. No suspicious bony lesions. Overlying soft tis sues appear unremarkable. Lungs and pleura: There is pleural thickening in the lateral aspect of the left upper thorax. No ple ural effusions or pneumothorax. Lungs appear clear. Mediastinum: Mediastinal contours appear normal. Heart size is normal. Old humeral head and neck f racture with internal fixation. IMPRESSION: 1. No displaced left rib fractures. 2. Pleural thickening left upper thorax. This finding is new. Etiology may be a pleural mass or hemot horax. Recommend chest CT with contrast for follow-up evaluation. Reviewed by: Margarita Ferrara MD on 11/28/2021 7:11 PM PDT Approved by: Margarita Ferrara MD on 11/28/2021 7:11 PM PDT Station ID: [id number]
--- NOTE | 2021-11-28 21:13 | CT Report ---
PROCEDURE: CHEST WO INDICATIONS: abn cxr TECHNIQUE: Noncontrast 1mm axial images were acquired from the pulmonary apices to the posterior costophrenic an gles. Axial 5 mm soft tissue kernel reconstructions were performed as well as 8 mm axial MIP and cor onal and sagittal 5 mm reformations. For radiation dose reduction, the following was used: automate d exposure control, adjustment of mA and/or kV according to patient size. COMPARISON: Chest x-ray 11/28/2021, CT chest angiogram 05/29/2020, 05/07/2020. FINDINGS: Image quality: There is metallic streak artifact from patient's surgical hardware in the right jane l head. Lungs and pleura: There is mild dependent atelectasis and scarring bilaterally. In the right upper lo be, there is a small 0.4 cm nodule on series 4 image 97 which is new compared to the prior studies. N o pleural effusions or pneumothorax. Central and peripheral airways are patent and normal in caliber . Mediastinum: Heart size is normal. No pericardial effusion. No mediastinal adenopathy by size crit eria. Thoracic aorta and central pulmonary arteries are normal in size. Esophagus is normal in renu angel. No hiatal hernia. Bones and chest wall: There is abnormal soft tissue thickening in the left chest wall centered along the left third rib with associated thickening of the pleura. There is corresponding indistinct lucen cy of the left third rib associated with a mass without bony erosions or destruction. No vertebral ori dy compression fractures. No axillary or supraclavicular adenopathy by size criteria. The thyroid d emonstrates no discrete nodules. Abdomen: Visualized upper abdomen demonstrates distention of the gallbladder without calcified galls tones or wall thickening. IMPRESSION: 1. Abnormal masslike soft tissue thickening in the chest wall centered along the left third rib later ally. The findings are suspicious for an infiltrative neoplasm in the chest wall but is incompletely characterized in the absence of intravenous contrast. Further evaluation may obtained with a contrast -enhanced MRI. 2. Indistinct lucency within the adjacent third rib without bony destruction. The findings likely rep resent reactive changes secondary to the mass. 3. Nonspecific right upper lobe 0.4 cm pulmonary nodule. Follow-up evaluation may be obtained in 6 mo nths to demonstrate stability if clinically indicated. 4. Distention of the gallbladder without calcified gallstones or wall thickening. If there is clinica l suspicion for cholecystitis, further evaluation may be obtained with ultrasound. Reviewed by: Ramiro Arzola MD on 11/28/2021 9:11 PM PDT Approved by: Ramiro Arzola MD on 11/28/2021 9:11 PM PDT Station ID: [id number]
[2021-11-28] MEDS ORDERED: oxyCODONE/ACET 5/325 Prepack 4 PO STA (21:26)
[2021-11-28 22:47] VITALS: BP 140/80
== END 2021-11-28 22:48 | disposition home or self-care (01) ==
LOC: ED 16:22
DX: C91.00 Acute lymphoblastic leukemia not having achieved remission (principal); S20.212A Contusion of left front wall of thorax, initial encounter; X58.XXXA Exposure to other specified factors, initial encounter
CPT/HCPCS: 36415; 36430; 71101; 71250; 80053; 85025; 86850; 86900; 86901; 86920; 96374; 99284; 99285; J1170; P9016

== ENCOUNTER 2021-11-29 17:59 | Outpatient (CLI) | payer MEDICAID ==
[2021-11-29] MEDS ORDERED: ACETAMINOPHEN 325 MG TABLET PO ONE (18:00)
[2021-11-29] MEDS ORDERED: diphenhydrAMINE 25 MG CAPSULE PO ONE (18:00)
[2021-11-29 19:56] VITALS: BP 128/71
== END 2021-11-29 18:00 | disposition home or self-care (01) ==
LOC: MAC 17:59
DX: C91.00 Acute lymphoblastic leukemia not having achieved remission (principal)
CPT/HCPCS: 36430; A9270; P9037; 86900; 86901

== ENCOUNTER 2021-12-01 13:18 | Outpatient (CLI) | payer MEDICAID | END 2021-12-01 13:19 | disposition EMS.NT | LOC: EMS 13:18 | DX: G89.3 Neoplasm related pain (acute) (chronic) (principal); R40.4 Transient alteration of awareness; C91.00 Acute lymphoblastic leukemia not having achieved remission ==

== ENCOUNTER 2021-12-15 10:55 | Outpatient (CLI) | payer MEDICAID | END 2021-12-15 10:56 | disposition E | LOC: EMS 10:55 ==